=== PATIENT | male | born 1960 | race Caucasian/White ===

== ENCOUNTER 2018-08-29 16:50 | Emergency (ER) | payer MEDICAID ==
--- NOTE | 2018-08-29 17:08 | EDM.PDOC ---
ED HPI GENERAL MEDICAL PROBLEM - General Chief Complaint: Gastrointestinal Problem Stated Complaint: swollen throat Time Seen by Provider: 08/29/18 16:50 Source of Information: Reports: Patient History Limitations: Reports: No Limitations - History of Present Illness INITIAL COMMENTS - FREE TEXT/NARRATIVE: According to patient he claims that he has been having difficulty with swallowing since yesterday. Woke up yesterday morning with sore throat.He claims it hurts to swallow. HE does not have teeth in his posterior jaw line, but feels like tooth ache. Has noticed some hoarseness of voice. No wheezing or shortness of breath. No fever or chills. No difficulty breathing. He has artificial dentures but cannot place it on the jaw line due to pain. He has not eaten much since yesterday as it hurts to swallow. No trauma to the face on neck. Does not c/o neck pain either. Onset Date: 08/28/18 Duration: Day(s): (2 ) Location: Reports: Other (throat) Quality: Reports: Ache Severity: Moderate Improves with: Reports: None Worsens with: Reports: None Associated Symptoms: Denies: Confusion, Chest Pain, Cough, Diaphoresis, Fever/ Chills, Nausea/Vomiting, Rash, Seizure, Shortness of Breath, Syncope, Weakness right side of throat Pain Score (Numeric/FACES): 9 - Related Data Allergies Allergy/AdvReac Type Severity Reaction Status Date / Time acetaminophen [From Tylenol] Allergy Nausea Verified 08/29/18 17:14 Home Meds: Home Meds Aspirin [Thien Chewable] 81 mg PO DAILY 08/29/18 [History] Carvedilol [Coreg] 3.125 mg PO BID 08/29/18 [History] Omeprazole 20 mg PO ACBREAKFAST 08/29/18 [History] Torsemide [Demadex] 40 mg PO BID 08/29/18 [History] ED ROS GENERAL - Review of Systems Review Of Systems: See Below Constitutional: Denies: Fever, Chills HEENT: Reports: Throat Pain, Throat Swelling. Denies: Ear Pain, Eye Discharge, Rhinitis Respiratory: Denies: Shortness of Breath, Cough, Sputum Cardiovascular: Denies: Chest Pain, Edema, Lightheadedness GI/Abdominal: Denies: Abdominal Pain, Nausea, Vomiting : Denies: Dysuria, Frequency Musculoskeletal: Denies: Joint Pain, Joint Swelling Skin: Denies: Bruising, Pruritis, Rash Neurological: Denies: Confusion, Dizziness, Headache ED EXAM, GENERAL - Physical Exam Exam: See Below Exam Limited By: No Limitations General Appearance: Alert, WD/WN, No Apparent Distress Eye Exam: Bilateral Eye: EOMI, PERRL Ears: Normal External Exam, Normal Canal, Hearing Grossly Normal, Normal TMs Ear Exam: Bilateral Ear: Auricle Normal, Canal Normal, TM normal Nose: Normal Inspection, Normal Mucosa, No Blood Throat/Mouth: Inflammation (on palpaion of the floor of the mouth, there is tenderness over the right side, but no mass felt.), Other (there are no teethin the psoterior quadrant of the jaw. Also there is some swelling of the gums over the rigth lower quadrant. ) Head: Atraumatic, Normocephalic Neck: Full Range of Motion, Other (there is obvious fullness noted in the right submandibular region of the neck. On palaption there is a large 5cm by 3cm ovoid painful swelling at the angle of the mandible on the right side. Firm in consistency, very tender to palpation.) Course - Vital Signs Text/Narrative:: 58 year male presented with c/o sore throat started yesterday morning, which has got worse today.Also he c/o hoarseness of voice but no difficulty breathing. Pt's clinical exam does show obvious left submandibular region mass with tenderness of the soft tissue of the neck all the way into suprasternal area. There is no obvious anterior neck swelling. CBC showed white count of 17.6K with neutrophils of 80%.BMP appears normal. Patient c/o pain rating around 8/10. he did receive Rocephin 1gm IM and Toradol 60mg IM while waiting on the Ct results. CT soft tissue of the neck, shows Right submandibular sialadenitis with 2 large sialoliths.Also there is infiltration of the soft tissue in the submandibular region B/l and right parapharyngeal region, with deviation of pharynx to left. The infiltration extends into the anterior lower neck.My concern is the soft tissue infection of the anterior neck with cellulitis. I did contact Dr. Niño ENT surgeon on all at [facility] and discuss with him. HE did recommend to start board spectrum antibiotics and anaerobic coverage. Hence Zosyn 3.725mg IV and Flagyl 500mg IV was given. Started on Iv fluid, NS 500ml bolus followed by 125cc/hr. HE did receive 20mg dexamethasone IV. He did agree with transfer of patient to [facility]. I did contact hospitalist correction warden and discuss with him. He did agree to accept patient. Pt is stable for transfer. He will be transfer by [facility] ambulance. Further care per Dr. Niño and . Last Recorded V/S: Last Vital Signs Temp 99 F 08/29/18 19:26 Pulse 89 08/29/18 19:26 Resp 19 08/29/18 19:26 BP 122/65 08/29/18 19:26 Pulse Ox 97 08/29/18 19:26 - Orders/Labs/Meds Orders: Active Orders 24 hr Category Date Time Status Soft Tissue Neck wo Cont [CT] Stat Exams 08/29/18 17:01 Taken Piperacillin/Tazobactam [Zosyn] 3.375 gm Med 08/29/18 19:00 Active Sodium Chloride 0.9% [Normal Saline] 100 ml IV ONETIME Sodium Chloride 0.9% [Normal Saline] 500 ml Med 08/29/18 19:02 Active IV .BOLUS Sodium Chloride 0.9% [Saline Flush] Med 08/29/18 19:02 Active 10 ml FLUSH ASDIRECTED PRN metroNIDAZOLE/Normal Saline [Flagyl 500 MG in NS 100 ML Med 08/29/18 19:01 Active ] 500 mg Premix Bag 1 bag IV ONETIME Peripheral IV Insertion Adult [OM.PC] Routine Oth 08/29/18 19:02 Ordered Medication Orders Metronidazole 500 mg/ Premix 100 mls @ 100 mls/hr IV ONETIME ONE Stop: 08/29/18 20:00 Last Admin: 08/29/18 19:52 Dose: 100 mls/hr Piperacillin Sod/Tazobactam (Sod 3.375 gm/ Sodium Chloride) 100 mls @ 100 mls/ hr IV ONETIME ONE Stop: 08/29/18 19:59 Last Admin: 08/29/18 19:24 Dose: 100 mls/hr Sodium Chloride (Normal Saline) 500 mls @ 500 mls/hr IV .BOLUS ONE Stop: 08/29/18 20:01 Last Admin: 08/29/18 19:05 Dose: 500 mls/hr Sodium Chloride (Saline Flush) 10 ml FLUSH ASDIRECTED PRN PRN Reason: Keep Vein Open Labs: Laboratory Tests 08/29/18 08/29/18 Range/Units 17:05 17:05 WBC 17.6 H (4.0-11.0) K/uL RBC 5.58 (4.50-6.50) M/uL Hgb 17.4 (13.0-18.0) g/dL Hct 50.3 (40.0-54.0) % MCV 90 (76-96) fL MCH 31.2 (27.0-32.0) pg MCHC 34.6 (31.0-35.0) g/dL RDW 14.5 (11.0-16.0) % Plt Count 271 (150-400) K/uL MPV 10.2 H (6.0-10.0) fL Neut % (Auto) 80.5 H (45.0-70.0) % Lymph % (Auto) 8.3 L (20.0-40.0) % Jones % (Auto) 10.7 H (3.0-10.0) % Eos % (Auto) 0.3 L (1.0-5.0) % Baso % (Auto) 0.2 (0.0-0.5) % Neut # (Auto) 14.16 H (2.00-7.50) K/uL Lymph # (Auto) 1.46 L (1.50-4.00) K/uL Jones # (Auto) 1.88 H (0.20-0.80) K/uL Eos # (Auto) 0.06 (0.04-0.40) K/uL Baso # (Auto) 0.03 (0.02-0.10) K/uL Sodium 137 (136-145) mmol/L Potassium 4.1 (3.5-5.1) mmol/L Chloride 99 (98-107) mmol/L Carbon Dioxide 28.6 (21.0-32.0) mmol/L Anion Gap 13.5 (5.0-15.0) mmol/L BUN 13 (8-26) mg/dL Creatinine 1.27 (0.70-1.30) mg/dL Est Cr Clr Drug Dosing 57.83 mL/min Estimated GFR (MDRD) 58 L (>60) MLS/MIN BUN/Creatinine Ratio 10.2 (6-25) Glucose 118 H (74-100) mg/dL Calcium 8.7 (8.5-10.1) mg/dL Meds: Medications Generic Name Dose Route Start Last Admin Trade Name Yeny PRN Reason Stop Dose Admin Metronidazole 500 mg/ Premix 100 mls @ 100 mls/hr 08/29/18 19:01 08/29/18 19: 52 IV 08/29/18 20:00 100 mls/hr ONETIME ONE Administration Piperacillin Sod/Tazobactam 100 mls @ 100 mls/hr 08/29/18 19:00 08/29/18 19: 24 Sod 3.375 gm/ Sodium Chloride IV 08/29/18 19:59 100 mls/hr ONETIME ONE Administration Sodium Chloride 500 mls @ 500 mls/hr 08/29/18 19:02 08/29/18 19:05 Normal Saline IV 08/29/18 20:01 500 mls/hr .BOLUS ONE Administration Sodium Chloride 10 ml 08/29/18 19:02 Saline Flush FLUSH ASDIRECTED PRN Keep Vein Open Discontinued Medications Generic Name Dose Route Start Last Admin Trade Name Yeny PRN Reason Stop Dose Admin Ceftriaxone Sodium 1 gm 08/29/18 17:37 08/29/18 17:40 Rocephin IM 08/29/18 17:38 1 gm ONETIME ONE Administration Ceftriaxone Sodium Confirm 08/29/18 17:47 08/29/18 17:52 Rocephin Administered 08/29/18 17:48 Not Given Dose 1 gm .ROUTE .STK-MED ONE Dexamethasone 20 mg 08/29/18 19:01 08/29/18 19:20 Dexamethasone IVPUSH 08/29/18 19:02 20 mg ONETIME ONE Administration Dexamethasone Confirm 08/29/18 19:16 08/29/18 19:20 Dexamethasone Administered 08/29/18 19:17 Not Given Dose 20 mg .ROUTE .STK-MED ONE Ketorolac Tromethamine 60 mg 08/29/18 17:36 08/29/18 17:41 Toradol IM 08/29/18 17:37 60 mg ONETIME ONE Administration Ketorolac Tromethamine Confirm 08/29/18 17:47 08/29/18 17:52 Toradol Administered 08/29/18 17:48 Not Given Dose 60 mg .ROUTE .STK-MED ONE Departure - Departure Time of Disposition: 08:30 Disposition: DC/Tfer to Acute Hospital 02 Condition: Fair Clinical Impression: Sialoadenitis of submandibular gland, Cellulitis of neck - Discharge Information *PRESCRIPTION DRUG MONITORING PROGRAM REVIEWED*: Not Applicable *COPY OF PRESCRIPTION DRUG MONITORING REPORT IN PATIENT THANG: Not Applicable Referrals: PCP,None [Primary Care Provider] - Forms: ED Department Discharge - Problem List & Annotations (1) Cellulitis of neck SNOMED Code(s): 01728554 Code(s): L03.221 - CELLULITIS OF NECK Status: Acute Current Visit: Yes (2) Sialoadenitis of submandibular gland SNOMED Code(s): 337027289 Code(s): K11.20 - SIALOADENITIS, UNSPECIFIED Status: Acute Current Visit : Yes - Problem List Review Problem List Initiated/Reviewed/Updated: Yes - My Orders Last 24 Hours: My Active Orders 08/29/18 17:01 Soft Tissue Neck wo Cont [CT] Stat 08/29/18 19:00 Piperacillin/Tazobactam [Zosyn] 3.375 gm Sodium Chloride 0.9% [Normal Saline] 100 ml IV ONETIME 08/29/18 19:01 metroNIDAZOLE/Normal Saline [Flagyl 500 MG in NS 100 ML] 500 mg Premix Bag 1 bag IV ONETIME 08/29/18 19:02 Sodium Chloride 0.9% [Normal Saline] 500 ml IV .BOLUS Sodium Chloride 0.9% [Saline Flush] 10 ml FLUSH ASDIRECTED PRN Peripheral IV Insertion Adult [OM.PC] Routine - Assessment/Plan Last 24 Hours: My Active Orders 08/29/18 17:01 Soft Tissue Neck wo Cont [CT] Stat 08/29/18 19:00 Piperacillin/Tazobactam [Zosyn] 3.375 gm Sodium Chloride 0.9% [Normal Saline] 100 ml IV ONETIME 08/29/18 19:01 metroNIDAZOLE/Normal Saline [Flagyl 500 MG in NS 100 ML] 500 mg Premix Bag 1 bag IV ONETIME 08/29/18 19:02 Sodium Chloride 0.9% [Normal Saline] 500 ml IV .BOLUS Sodium Chloride 0.9% [Saline Flush] 10 ml FLUSH ASDIRECTED PRN Peripheral IV Insertion Adult [OM.PC] Routine Assessment:: Right submandibular sialoadenitis with neck cellulitis Plan: 58 year male presented with c/o sore throat started yesterday morning, which has got worse today.Also he c/o hoarseness of voice but no difficulty breathing. Pt's clinical exam does show obvious left submandibular region mass with tenderness of the soft tissue of the neck all the way into suprasternal area. There is no obvious anterior neck swelling. CBC showed white count of 17.6K with neutrophils of 80%.BMP appears normal. Patient c/o pain rating around 8/10. he did receive Rocephin 1gm IM and Toradol 60mg IM while waiting on the Ct results. CT soft tissue of the neck, shows Right submandibular sialadenitis with 2 large sialoliths.Also there is infiltration of the soft tissue in the submandibular region B/l and right parapharyngeal region, with deviation of pharynx to left. The infiltration extends into the anterior lower neck.My concern is the soft tissue infection of the anterior neck with cellulitis. I did contact Dr. Niño ENT surgeon on all at [facility] and discuss with him. HE did recommend to start board spectrum antibiotics and anaerobic coverage. Hence Zosyn 3.725mg IV and Flagyl 500mg IV was given. Started on Iv fluid, NS 500ml bolus followed by 125cc/hr. HE did receive 20mg dexamethasone IV. He did agree with transfer of patient to [facility]. I did contact hospitalist correction warden and discuss with him. He did agree to accept patient. Pt is stable for transfer. He will be transfer by [facility] ambulance. Further care per Dr. Niño and .
[2018-08-29] MEDS ORDERED: Ketorolac 60 MG/2 ML SDV IM ONE (17:36)
[2018-08-29] MEDS ORDERED: cefTRIAXone 1 GM Vial IM ONE (17:37)
[2018-08-29] MEDS ORDERED: Ketorolac 60 MG/2 ML SDV ONE (17:47)
[2018-08-29] MEDS ORDERED: cefTRIAXone 1 GM Vial ONE (17:47)
[2018-08-29] MEDS ORDERED: Piperacillin/Tazobactam 3.375 GM in Sodium Chloride 0.9% 100 ML IV ONE (19:00)
[2018-08-29] MEDS ORDERED: metroNIDAZOLE/Normal Saline 500 MG in Premix Bag 1 BAG IV ONE (19:01)
[2018-08-29] MEDS ORDERED: Dexamethasone 10 MG/ML SDV IVPUSH ONE (19:01)
[2018-08-29] MEDS ORDERED: Sodium Chloride 0.9% 10 ML Syringe FLUSH PRN (19:02)
[2018-08-29] MEDS ORDERED: Sodium Chloride 0.9% 500 ML IV ONE (19:02)
[2018-08-29] MEDS ORDERED: Dexamethasone 4 MG/ML SDV ONE (19:16)
--- NOTE | 2018-08-30 09:39 | CT ---
UNENHANCED NECK CT DATE OF SERVICE: 08/29/18 The parotid glands are symmetric and appear normal. The submandibular glands are asymmetric. The right submandibular gland appears enlarged compared to the left. There is minimal adjacent fat stranding. There are two enlarged sialoliths located within the distal right submandibular duct. They measures 7 and 13 mm in length. The thyroid gland is unremarkable. The vascular structures appear unremarkable. No adenopathy. There is mild mass effect produced by the right submandibular gland on adjacent structures as well as the pharynx. Larynx appears unremarkable. The epiglottis is not enlarged. No other significant findings. [id number] [facility]
== END 2018-08-29 20:29 ==
LOC: LB.ED 16:50
DX: K11.20 Sialoadenitis, unspecified (principal); L03.221 Cellulitis of neck; Z79.82 Long term (current) use of aspirin; Z79.899 Other long term (current) drug therapy; Z88.8 Allergy status to other drugs, medicaments and biological substances
CPT/HCPCS: 36415; 70490; 80048; 85025; 96372; 96374; 96375; 99285-25; A0425; A0429; J0696; J1100; J1885; J2543; J3490; J7030; J7040

== ENCOUNTER 2018-11-14 11:36 | Emergency (ER) | payer MEDICAID ==
[2018-11-14] MEDS ORDERED: Furosemide 40 MG/4 ML VIAL IVPUSH ONE (12:51)
[2018-11-14] MEDS ORDERED: Sodium Chloride 0.9% 10 ML Syringe FLUSH PRN (12:51)
--- NOTE | 2018-11-14 12:57 | CR ---
DATE OF SERVICE: 11/14/2018 CLINICAL DATA: Shortness of breath PA and lateral chest: No priors. The heart is mildly enlarged. The pulmonary vasculature is prominent with cephalization of flow consistent with pulmonary venous congestion. Mild congestive failure is suspected. There is mild interstitial changes throughout both lungs. There is blunting of both costrophrenic angles posteriorly on the lateral view consistent with small bilateral pleural effusions. No other significant findings. No pneumothorax. MTDD
[2018-11-14] MEDS ORDERED: Furosemide 40 MG/4 ML VIAL ONE (13:20)
--- NOTE | 2018-11-14 15:00 | EDM.PDOC ---
ED HPI GENERAL MEDICAL PROBLEM - General Chief Complaint: Cardiovascular Problem Stated Complaint: TROUBLE BREATHING Time Seen by Provider: 11/14/18 11:50 Source of Information: Reports: Patient History Limitations: Reports: No Limitations - History of Present Illness INITIAL COMMENTS - FREE TEXT/NARRATIVE: This is a 58yo M here for shortness of breath for the past month. He states he has slowly gotten worse. It is noted that he has heart issues in the past with low EF and COPD. He has not been compliant with his torsemide and has taken his meds on and off. He denies any other issues other than shortness of breath. He has some feeling of abdominal pressure but no pain. Onset: Gradual Duration: Week(s):, Getting Worse Location: Reports: Chest, Abdomen Associated Symptoms: Reports: Shortness of Breath - Related Data Allergies Allergy/AdvReac Type Severity Reaction Status Date / Time acetaminophen [From Tylenol] Allergy Nausea Verified 11/14/18 12:00 Home Meds: Home Meds Aspirin [Thien Chewable] 81 mg PO DAILY 08/29/18 [History] Carvedilol [Coreg] 3.125 mg PO BID 08/29/18 [History] Omeprazole 20 mg PO ACBREAKFAST 08/29/18 [History] Torsemide [Demadex] 40 mg PO BID 08/29/18 [History] Social & Family History - Tobacco Use Smoking Status *Q: Current Every Day Smoker Years of Tobacco use: 45 Packs/Tins Daily: 0.5 - Caffeine Use Caffeine Use: Reports: Coffee, Soda - Recreational Drug Use Recreational Drug Use: Yes Recreational Drug Type: Reports: Marijuana/Hashish Recreational Drug Use Frequency: Rarely ED ROS GENERAL - Review of Systems Review Of Systems: ROS reveals no pertinent complaints other than HPI. ED EXAM, GENERAL - Physical Exam Exam: See Below Exam Limited By: No Limitations General Appearance: Alert, WD/WN, Mild Distress Eye Exam: Bilateral Eye: EOMI, PERRL Ears: Normal External Exam Nose: Normal Inspection Throat/Mouth: Normal Inspection Head: Atraumatic, Normocephalic Neck: Normal Inspection, Supple, Non-Tender Respiratory/Chest: Crackles, Wheezing Cardiovascular: Normal Peripheral Pulses, Tachycardia GI/Abdominal: Normal Bowel Sounds Course - Vital Signs Last Recorded V/S: Last Vital Signs Temp 36.6 C 11/14/18 11:54 Pulse 96 11/14/18 11:54 Resp 20 11/14/18 11:54 BP 139/93 H 11/14/18 11:54 Pulse Ox 98 11/14/18 11:54 - Orders/Labs/Meds Orders: Active Orders 24 hr Category Date Time Status EKG Documentation Completion [RC] ASDIRECTED Care 11/14/18 12:02 Active Peripheral IV Care [RC] . DIRECTED Care 11/14/18 12:51 Active Sodium Chloride 0.9% [Saline Flush] Med 11/14/18 12:51 Active 10 ml FLUSH ASDIRECTED PRN Peripheral IV Insertion Adult [OM.PC] Routine Oth 11/14/18 12:51 Ordered Medication Orders Sodium Chloride (Saline Flush) 10 ml FLUSH ASDIRECTED PRN PRN Reason: Keep Vein Open Labs: Laboratory Tests 11/14/18 11/14/18 11/14/18 Range/Units 12:10 12:10 12:10 WBC 8.6 D (4.0-11.0) K/uL RBC 4.58 (4.50-6.50) M/uL Hgb 13.9 D (13.0-18.0) g/dL Hct 42.0 (40.0-54.0) % MCV 92 (76-96) fL MCH 30.3 (27.0-32.0) pg MCHC 33.1 (31.0-35.0) g/dL RDW 14.3 (11.0-16.0) % Plt Count 285 (150-400) K/uL MPV 10.5 H (6.0-10.0) fL Neut % (Auto) 73.3 H (45.0-70.0) % Lymph % (Auto) 16.4 L (20.0-40.0) % Bryan % (Auto) 6.2 (3.0-10.0) % Eos % (Auto) 3.6 (1.0-5.0) % Baso % (Auto) 0.5 (0.0-0.5) % Neut # (Auto) 6.28 (2.00-7.50) K/uL Lymph # (Auto) 1.40 L (1.50-4.00) K/uL Bryan # (Auto) 0.53 (0.20-0.80) K/uL Eos # (Auto) 0.31 (0.04-0.40) K/uL Baso # (Auto) 0.04 (0.02-0.10) K/uL VBG pH 7.37 (7.31-7.41) Sodium 143 (136-145) mmol/L Potassium 4.5 (3.5-5.1) mmol/L Chloride 108 H (98-107) mmol/L Carbon Dioxide 24.1 (21.0-32.0) mmol/L Anion Gap 15.4 H (5.0-15.0) mmol/L BUN 13 (8-26) mg/dL Creatinine 1.20 (0.70-1.30) mg/dL Est Cr Clr Drug Dosing TNP Estimated GFR (MDRD) > 60 (>60) MLS/MIN BUN/Creatinine Ratio 10.8 (6-25) Glucose 154 H D (74-100) mg/dL Calcium 8.5 (8.5-10.1) mg/dL Troponin I 0.045 (0.000-0.060) ng/mL B-Natriuretic Peptide (0-125) pg/mL 11/14/18 Range/Units 12:10 WBC (4.0-11.0) K/uL RBC (4.50-6.50) M/uL Hgb (13.0-18.0) g/dL Hct (40.0-54.0) % MCV (76-96) fL MCH (27.0-32.0) pg MCHC (31.0-35.0) g/dL RDW (11.0-16.0) % Plt Count (150-400) K/uL MPV (6.0-10.0) fL Neut % (Auto) (45.0-70.0) % Lymph % (Auto) (20.0-40.0) % Bryan % (Auto) (3.0-10.0) % Eos % (Auto) (1.0-5.0) % Baso % (Auto) (0.0-0.5) % Neut # (Auto) (2.00-7.50) K/uL Lymph # (Auto) (1.50-4.00) K/uL Bryan # (Auto) (0.20-0.80) K/uL Eos # (Auto) (0.04-0.40) K/uL Baso # (Auto) (0.02-0.10) K/uL VBG pH (7.31-7.41) Sodium (136-145) mmol/L Potassium (3.5-5.1) mmol/L Chloride (98-107) mmol/L Carbon Dioxide (21.0-32.0) mmol/L Anion Gap (5.0-15.0) mmol/L BUN (8-26) mg/dL Creatinine (0.70-1.30) mg/dL Est Cr Clr Drug Dosing Estimated GFR (MDRD) (>60) MLS/MIN BUN/Creatinine Ratio (6-25) Glucose (74-100) mg/dL Calcium (8.5-10.1) mg/dL Troponin I (0.000-0.060) ng/mL B-Natriuretic Peptide 2906 H (0-125) pg/mL Meds: Medications Generic Name Dose Route Start Last Admin Trade Name Freq PRN Reason Stop Dose Admin Sodium Chloride 10 ml 11/14/18 12:51 Saline Flush FLUSH ASDIRECTED PRN Keep Vein Open Discontinued Medications Generic Name Dose Route Start Last Admin Trade Name Freq PRN Reason Stop Dose Admin Furosemide 40 mg 11/14/18 12:51 11/14/18 13:18 Lasix IVPUSH 11/14/18 12:52 40 mg NOW ONE Administration Furosemide Confirm 11/14/18 13:20 11/14/18 13:23 Lasix Administered 11/14/18 13:21 Not Given Dose 40 mg .ROUTE .STK-MED ONE Departure - Departure Time of Disposition: 14:30 Disposition: Home, Self-Care 01 Condition: Good Clinical Impression: Pulmonary vascular congestion COPD (chronic obstructive pulmonary disease) Qualifiers: COPD type: unspecified COPD Qualified Code(s): J44.9 - Chronic obstructive pulmonary disease, unspecified CHF (congestive heart failure) Qualifiers: Heart failure type: unspecified Heart failure chronicity: chronic Qualified Code(s): I50.9 - Heart failure, unspecified Instructions: Shortness of Breath, Adult, [id number] Referrals: PCP,None [Primary Care Provider] - Forms: ED Department Discharge Additional Instructions: Discharge home. Diet: as tolerated Activity: as tolerated. Continue taking home medications. Continue taking Torsemide as prescribed. Patient educated on taking the Torsemide earlier in the day to prevent having to void all night long. Follow up in the clinic with primary provider and your laboratory tester. - Problem List & Annotations (1) CHF (congestive heart failure) SNOMED Code(s): 14995687 Code(s): I50.9 - HEART FAILURE, UNSPECIFIED Status: Chronic Priority: Medium Current Visit: Yes Qualifiers: Heart failure type: unspecified Heart failure chronicity: chronic Qualified Code(s): I50.9 - Heart failure, unspecified (2) COPD (chronic obstructive pulmonary disease) SNOMED Code(s): 23366030 Code(s): J44.9 - CHRONIC OBSTRUCTIVE PULMONARY DISEASE, UNSPECIFIED Status : Chronic Priority: Medium Current Visit: Yes Qualifiers: COPD type: unspecified COPD Qualified Code(s): J44.9 - Chronic obstructive pulmonary disease, unspecified (3) Pulmonary vascular congestion SNOMED Code(s): 980628165 Code(s): R09.89 - OTH SYMPTOMS AND SIGNS INVOLVING THE CIRC AND RESP SYSTEMS Status: Acute Priority: High Current Visit: Yes - Problem List Review Problem List Initiated/Reviewed/Updated: Yes - My Orders Last 24 Hours: My Active Orders 11/14/18 12:02 EKG Documentation Completion [RC] ASDIRECTED 11/14/18 12:51 Peripheral IV Care [RC] . DIRECTED Sodium Chloride 0.9% [Saline Flush] 10 ml FLUSH ASDIRECTED PRN Peripheral IV Insertion Adult [OM.PC] Routine - Assessment/Plan Last 24 Hours: My Active Orders 11/14/18 12:02 EKG Documentation Completion [RC] ASDIRECTED 11/14/18 12:51 Peripheral IV Care [RC] . DIRECTED Sodium Chloride 0.9% [Saline Flush] 10 ml FLUSH ASDIRECTED PRN Peripheral IV Insertion Adult [OM.PC] Routine Plan: Counseled on compliance with medications. Patient states he stopped taking his torsemide due to frequent urinations. Counseled on f/u with Cardiology and rtc and f/u with PCP this week.
== END 2018-11-14 14:11 | disposition home or self-care (01) ==
LOC: LB.ED 11:36
DX: J44.9 Chronic obstructive pulmonary disease, unspecified (principal); I50.9 Heart failure, unspecified; F17.210 Nicotine dependence, cigarettes, uncomplicated; Z79.899 Other long term (current) drug therapy; Z79.82 Long term (current) use of aspirin; Z88.8 Allergy status to other drugs, medicaments and biological substances
CPT/HCPCS: 36415; 71046; 80048; 82800; 83880; 84484; 85025; 93005; 96374; 99285-25; J1940

== ENCOUNTER 2019-02-22 21:05 | Emergency (ER) | payer MEDICAID ==
[2019-02-22] MEDS ORDERED: Amoxicillin/Clavulanate K 875-125 MG Tab ONE (22:40)
--- NOTE | 2019-02-23 01:02 | ER ---
REASON FOR EMERGENCY ROOM VISIT: Neck swelling. HISTORY: This 59-year-old man comes in with a 2-day history of swelling along his anterior neck beneath his mandible on the right side. His past medical history is immediately relevant and that he was seen back in August with similar tender swollen area with some surrounding cellulitis that was thought to be due to sialadenitis. A CT scan showed sialadenitis with some small salivary gland stones involving his right submandibular gland. He was hospitalized in [place] and placed on IV antibiotics for 3 days and was seen in consultation by ENT. Apparently according to the patient, there was some discussion as to whether or not his submandibular gland should be excised at that juncture, but no definite decision was made. He was discharged on oral antibiotics and from that point on was asymptomatic. He has not had any fever or chills. He states that the area in his neck is more tender. He does have a foul taste in his mouth which he thinks is pus. He notice this as some greenish thick saliva also consistent with pus. He denies any difficulty swallowing or any difficulties with his airway. PAST MEDICAL HISTORY: Significant for: 1. COPD. 2. CHF. 3. Hypertension. 4. History of pulmonary vascular congestion. MEDICATIONS: Include fluticasone, Advair inhaler p.r.n., citalopram 20 mg p.o. daily, lisinopril 15 mg p.o. daily, albuterol inhaler p.r.n., aspirin 81 mg p.o. daily , omeprazole 20 mg p.o. daily, carvedilol 3.125 mg p.o. b.i.d., torsemide 20 mg p.o. daily and 40 mg p.o. daily. ALLERGIES: ACETAMINOPHEN. REVIEW OF SYSTEMS: Pertinent positives and negatives as listed in the HPI. PHYSICAL EXAMINATION: GENERAL: Reveals a pleasant man in no acute distress. VITAL SIGNS: He is afebrile. Pulse is 105, blood pressure 103/79, respiratory rate is 24, O2 sats 98%. HEENT: Head is normocephalic. No conjunctivitis is noted. On the right side of his submandibular area just inferior to the angle of the mandible, he has a smooth indurated, firm, freely movable, tender mass consistent with a sialadenitis. There is no crepitus. There is no overlying erythema. On palpation of this, I was able to get some purulent material expressed from his salivary duct orifices on the right side of the floor of his mouth. It is tender, but not exquisitely so. I cannot detect any fluctuance in this area. Left side of his neck is normal. Remainder of his oropharynx is unremarkable except he is edentulous on all of his maxillary teeth. CHEST: Clear to auscultation with reasonably good air exchange. No wheezes, rhonchi, or rales. CARDIAC: Regular rate without murmur. ABDOMEN: Soft, nontender. No hepatosplenomegaly. SKIN: No rashes. LABORATORY: CBC is normal. IMPRESSION: Sialadenitis, recurrent. PLAN: I discussed the patient's findings and his past history with Dr. Lindsay, the ENT physician hvac commercial salesperson in [place]. He felt that was reasonable, given the fact that he does not have an elevated white count (WBC is 10.4), and he is afebrile to place him on oral antibiotics and Augmentin being one option discussed. We discussed some other measures including massage of the salivary gland, lemon drops, and adequate hydration. He was given Augmentin 875 mg tablets, dispense #20, 1 p.o. b.i.d. He is instructed to follow up with his provider next week, where she may want to consult with ENT depending on how he is doing. Certainly, if his symptoms worsen or should he develop fever and chills, he should be seen again whereupon he may need to be hospitalized on IV antibiotics. Dr. Lindsay felt that most of these cases that present in this manner can be treated on oral antibiotics and I felt comfortable with his recommendation. All questions were answered. The patient understands and agrees with this plan. MALENA /[id number] RUFINA
== END 2019-02-22 22:48 | disposition home or self-care (01) ==
LOC: LB.ED 21:05
DX: K11.20 Sialoadenitis, unspecified (principal); I11.0 Hypertensive heart disease with heart failure; I50.9 Heart failure, unspecified; J44.9 Chronic obstructive pulmonary disease, unspecified; Z88.6 Allergy status to analgesic agent; Z79.82 Long term (current) use of aspirin; Z79.899 Other long term (current) drug therapy
CPT/HCPCS: 36415; 80053; 85025; 99283; A9270

== ENCOUNTER 2019-03-30 06:26 | Emergency (ER) | payer MEDICAID ==
--- NOTE | 2019-03-30 06:56 | EDM.PDOC ---
ED HPI GENERAL MEDICAL PROBLEM - General Chief Complaint: General Stated Complaint: THROAT SWELLING Time Seen by Provider: 03/30/19 06:30 Source of Information: Reports: Patient History Limitations: Reports: No Limitations - History of Present Illness INITIAL COMMENTS - FREE TEXT/NARRATIVE: Pt is here as he has noticed the reoccurrence of swelling over the right lower jaw since yesterday. He has some pain in the swelling. No purulent drainage under the tongue.No fever or chills. His looked in his mouth and noticed his tongue was black and brought him into emergency room.No hoarseness of voice , no shortness of breath. No difficulty swallowing or breathing. Pt has chronic sialoliths of his right submandibular gland. He has had several episodes of infection in the gland. He has had 3 courses of antibiotics in the recent past. Antibiotics resolve the infection and it reoccurs. No other complaints Onset Date: 03/29/19 Location: Reports: Neck Quality: Reports: Ache Severity: Mild Improves with: Reports: None Worsens with: Reports: None Associated Symptoms: Denies: Confusion, Chest Pain, Cough, Diaphoresis, Fever/ Chills, Headaches, Nausea/Vomiting, Rash, Seizure, Shortness of Breath, Syncope , Weakness Right Throat Pain Score (Numeric/FACES): 7 - Related Data Allergies Allergy/AdvReac Type Severity Reaction Status Date / Time acetaminophen [From Tylenol] Allergy Nausea Verified 02/22/19 22:04 Home Meds: Home Meds Carvedilol [Coreg] 3.125 mg PO BID 08/29/18 [History] Omeprazole 20 mg PO ACBREAKFAST 08/29/18 [History] Torsemide [Demadex] 40 mg PO DAILY 08/29/18 [History] Albuterol [Ventolin HFA] 1 - 2 inh PO Q6H PRN 02/22/19 [History] Aspirin [Ecotrin EC] 81 mg PO DAILY 02/22/19 [History] Citalopram [Citalopram HBr] 20 mg PO DAILY 02/22/19 [History] Fluticasone/Salmeterol [Advair Hfa 230-21 Mcg Inhaler] 1 puff IH Q4HR PRN [History] Lisinopril 5 mg PO DAILY 02/22/19 [History] Lisinopril 10 mg PO DAILY 02/22/19 [History] Torsemide [Demadex] 20 mg PO DAILY 02/22/19 [History] Social & Family History - Caffeine Use Caffeine Use: Reports: Coffee, Soda ED ROS GENERAL - Review of Systems Review Of Systems: See Below Constitutional: Denies: Fever, Chills, Weakness HEENT: Denies: Ear Pain, Rhinitis, Sinus Problem, Throat Pain Respiratory: Denies: Shortness of Breath, Wheezing, Pleuritic Chest Pain, Cough , Sputum Cardiovascular: Denies: Chest Pain, Lightheadedness GI/Abdominal: Denies: Abdominal Pain, Nausea, Vomiting Musculoskeletal: Denies: Joint Pain, Joint Swelling Skin: Denies: Bruising, Pruritis, Rash, Wound ED EXAM, GENERAL - Physical Exam Exam: See Below Exam Limited By: No Limitations General Appearance: Alert, WD/WN, No Apparent Distress Eye Exam: Bilateral Eye: EOMI, PERRL Ears: Normal External Exam, Normal Canal, Hearing Grossly Normal, Normal TMs Ear Exam: Bilateral Ear: Auricle Normal, Canal Normal, TM normal Nose: Normal Inspection, Normal Mucosa, No Blood Throat/Mouth: Normal Inspection, Normal Lips, Normal Teeth, Normal Gums, Normal Oropharynx, Normal Voice, No Airway Compromise Head: Atraumatic, Normocephalic Neck: Full Range of Motion, Other (There is swelling on the right submandibular region about 3cm by 4cm in dimension, mild tenderness to palpation. No warmth or erythema noted. There is no purulent draiange under the tongue.) Respiratory/Chest: No Respiratory Distress, Lungs Clear, Normal Breath Sounds, No Accessory Muscle Use, Chest Non-Tender Cardiovascular: Normal Peripheral Pulses, Regular Rate, Rhythm, No Edema, No Gallop, No JVD, No Murmur, No Rub Course - Vital Signs Text/Narrative:: Pt has history of right submandibular salivary gland sialolithiasis with recurrent sialoadenitis. Pt's CBC done today shows white count of 12.5. he is not having purulent drainage that he routinely has either. I have reassured patient, started him on Augmentin 875mg BID for 10 days. Advised him to followup with ENT. Patient does have appointment on 03/03/19 with ENT at [facility]. Pt advised to followup with ENT for further care. I do not see any concern of airway compromise on this visit. Advised to return to emergency room, if he has hoarseness of voice or loss of voice, drooling of saliva, difficulty with swallowing. High grade fever with chills. Last Recorded V/S: Last Vital Signs Temp 96.7 F 03/30/19 06:49 Pulse 104 H 03/30/19 06:49 Resp 20 03/30/19 06:49 BP 127/103 H 03/30/19 06:49 Pulse Ox 100 03/30/19 06:49 - Orders/Labs/Meds Labs: Laboratory Tests 03/30/19 Range/Units 07:02 WBC 12.5 H D (4.0-11.0) K/uL RBC 5.42 (4.50-6.50) M/uL Hgb 15.8 (13.0-18.0) g/dL Hct 45.4 (40.0-54.0) % MCV 84 (76-96) fL MCH 29.2 (27.0-32.0) pg MCHC 34.8 (31.0-35.0) g/dL RDW 14.6 (11.0-16.0) % Plt Count 241 (150-400) K/uL MPV 10.8 H (6.0-10.0) fL Neut % (Auto) 80.5 H (45.0-70.0) % Lymph % (Auto) 9.7 L (20.0-40.0) % [place] % (Auto) 7.9 (3.0-10.0) % Eos % (Auto) 1.4 (1.0-5.0) % Baso % (Auto) 0.5 (0.0-0.5) % Neut # (Auto) 10.02 H (2.00-7.50) K/uL Lymph # (Auto) 1.21 L (1.50-4.00) K/uL [place] # (Auto) 0.99 H (0.20-0.80) K/uL Eos # (Auto) 0.18 (0.04-0.40) K/uL Baso # (Auto) 0.06 (0.02-0.10) K/uL Departure - Departure Time of Disposition: 07:20 Disposition: Home, Self-Care 01 Condition: Fair Clinical Impression: Sialolithiasis of submandibular gland - Discharge Information *PRESCRIPTION DRUG MONITORING PROGRAM REVIEWED*: Not Applicable *COPY OF PRESCRIPTION DRUG MONITORING REPORT IN PATIENT THANG: Not Applicable Forms: ED Department Discharge Additional Instructions: Pt has history of right submandibular salivary gland sialolithiasis with recurrent sialoadenitis. Pt's CBC done today shows white count of 12.5. he is not having purulent drainage that he routinely has either. I have reassured patient, started him on Augmentin 875mg BID for 10 days. Advised him to followup with ENT. Patient does have appointment on 03/03/19 with ENT at [facility]. Pt advised to followup with ENT for further care. I do not see any concern of airway compromise on this visit. Advised to return to emergency room, if he has hoarseness of voice or loss of voice, drooling of saliva, difficulty with swallowing. High grade fever with chills. - Problem List & Annotations (1) Sialolithiasis of submandibular gland Status: Acute Current Visit: Yes - Problem List Review Problem List Initiated/Reviewed/Updated: Yes - Assessment/Plan Assessment:: Sialolithiasis Submandibular gland Plan: Pt has history of right submandibular salivary gland sialolithiasis with recurrent sialoadenitis. Pt's CBC done today shows white count of 12.5. he is not having purulent drainage that he routinely has either. I have reassured patient, started him on Augmentin 875mg BID for 10 days. Advised him to followup with ENT. Patient does have appointment on 03/03/19 with ENT at [facility]. Pt advised to followup with ENT for further care. I do not see any concern of airway compromise on this visit. Advised to return to emergency room, if he has hoarseness of voice or loss of voice, drooling of saliva, difficulty with swallowing. High grade fever with chills.
[2019-03-30] MEDS ORDERED: Amoxicillin/Clavulanate K 875-125 MG Tab ONE (07:20)
== END 2019-03-30 07:30 | disposition home or self-care (01) ==
LOC: LB.ED 06:26
DX: K11.5 Sialolithiasis (principal); Z88.8 Allergy status to other drugs, medicaments and biological substances
CPT/HCPCS: 36415; 85025; 99283; A9270-GY

== ENCOUNTER 2019-04-23 16:10 | Inpatient (IN) | payer MEDICAID ==
[2019-04-23 16:46] LABS: HEMOGLOBIN A1C 11.5 % (4.5-6.2)
[2019-04-23] MEDS ORDERED: 50% Dextrose in Water 50 ML Syringe IVPUSH ONE (17:25)
[2019-04-23] MEDS ORDERED: Sodium Chloride 0.45% with KCl 1,000 ML IV SCH (17:45)
--- NOTE | 2019-04-23 17:51 | PCM.HP.2 ---
H&P History of Present Illness - General Date of Service: 04/23/19 Admit Problem/Dx: Admission Diagnosis/Problem Admission Diagnosis/Problem Diabetic ketoacidosis Source of Information: Patient, Family History Limitations: Reports: No Limitations - History of Present Illness Initial Comments - Free Text/Narative: This is a 59yo M here for fatigue. He has been sleeping for days. His symptoms started on Monday and has been constant. He has been drinking a lot of water and urinating a lot. He denies having an appetite. He states he just feels tired and wants to sleep all the time. He denies any fever or chills, no chest pain or shortness of breath. He does have a parent with Diabetes. Onset of Symptoms: Reports: Sudden Duration of Symptoms: Reports: Day(s): Location: Reports: Generalized Severity: Severe Improves with: Reports: None Worsens with: Reports: None Associated Symptoms: Reports: Loss of Appetite, Weakness, Other (weight loss of 15-20 lbs) - Related Data Allergies/Adverse Reactions: Allergies Allergy/AdvReac Type Severity Reaction Status Date / Time acetaminophen [From Tylenol] Allergy Nausea Verified 02/22/19 22:04 Home Medications: Home Meds Carvedilol [Coreg] 3.125 mg PO BID 08/29/18 [History] Omeprazole 20 mg PO ACBREAKFAST 08/29/18 [History] Torsemide [Demadex] 40 mg PO DAILY 08/29/18 [History] Albuterol [Ventolin HFA] 1 - 2 inh PO Q6H PRN 02/22/19 [History] Aspirin [Ecotrin EC] 81 mg PO DAILY 02/22/19 [History] Citalopram [Citalopram HBr] 20 mg PO DAILY 02/22/19 [History] Fluticasone/Salmeterol [Advair Hfa 230-21 Mcg Inhaler] 1 puff IH Q4HR PRN [History] Lisinopril 5 mg PO DAILY 02/22/19 [History] Lisinopril 10 mg PO DAILY 02/22/19 [History] Torsemide [Demadex] 20 mg PO DAILY 02/22/19 [History] Past Medical History Cardiovascular History: Reports: Heart Failure, Hypertension Respiratory History: Reports: COPD Gastrointestinal History: Reports: GERD Social & Family History - Family History Family Medical History: Noncontributory - Caffeine Use Caffeine Use: Reports: Coffee, Soda H&P Review of Systems - Review of Systems: Review Of Systems: ROS reveals no pertinent complaints other than HPI. Exam - Exam Exam: See Below - Exam General: Alert, Lethargic HEENT: PERRLA, EOMI Neck: Supple, Trachea Midline Lungs: Clear to Auscultation, Normal Respiratory Effort Cardiovascular: Regular Rate, Regular Rhythm GI/Abdominal Exam: Normal Bowel Sounds, Soft, Non-Tender Back Exam: Normal Inspection Extremities: Normal Inspection, No Pedal Edema Peripheral Pulses: 2+: Dorsalis Pedis (L), Dorsalis Pedis (R) Skin: Warm, Dry, Intact Neurological: Cranial Nerves Intact, Reflexes Equal Bilateral Neuro Extensive - Mental Status: Oriented x3, Other (sleepy, tired) - Patient Data Lab Results Last 24 hrs: Laboratory Results - last 24 hr 04/23/19 04/23/19 04/23/19 Range/Units 16:17 16:17 16:17 WBC 9.4 D (4.0-11.0) K/uL RBC 5.50 (4.50-6.50) M/uL Hgb 16.0 (13.0-18.0) g/dL Hct 47.1 (40.0-54.0) % MCV 86 (76-96) fL MCH 29.1 (27.0-32.0) pg MCHC 34.0 (31.0-35.0) g/dL RDW 15.6 (11.0-16.0) % Plt Count 198 (150-400) K/uL MPV 11.5 H (6.0-10.0) fL Neut % (Auto) 78.3 H (45.0-70.0) % Lymph % (Auto) 12.6 L (20.0-40.0) % [place] % (Auto) 7.0 (3.0-10.0) % Eos % (Auto) 1.5 (1.0-5.0) % Baso % (Auto) 0.6 H (0.0-0.5) % Neut # (Auto) 7.35 (2.00-7.50) K/uL Lymph # (Auto) 1.18 L (1.50-4.00) K/uL [place] # (Auto) 0.66 (0.20-0.80) K/uL Eos # (Auto) 0.14 (0.04-0.40) K/uL Baso # (Auto) 0.06 (0.02-0.10) K/uL ESR 18 (0-20) mm/hr VBG pH (7.31-7.41) Sodium 139 (136-145) mmol/L Potassium 4.7 (3.5-5.1) mmol/L Chloride 100 (98-107) mmol/L Carbon Dioxide 29.5 (21.0-32.0) mmol/L Anion Gap 14.2 (5.0-15.0) mmol/L BUN 23 D (8-26) mg/dL Creatinine 1.75 H D (0.70-1.30) mg/dL Est Cr Clr Drug Dosing TNP Estimated GFR (MDRD) 40 L (>60) MLS/MIN BUN/Creatinine Ratio 13.1 (6-25) Glucose 624 H* D (74-100) mg/dL Hemoglobin A1c 11.5 H (4.5-6.2) % Calcium 10.0 (8.5-10.1) mg/dL Total Bilirubin 1.1 H D (0.0-1.0) mg/dL AST 21 (15-37) U/L ALT 37 (12-78) U/L Alkaline Phosphatase 163 H (46-116) U/L C-React Prot High Sens 27.63 H (0.00-3.00) mg/dL B-Natriuretic Peptide 3640 H D (0-125) pg/mL Total Protein 7.5 (6.4-8.2) g/dL Albumin 3.4 (3.4-5.0) g/dL Globulin 4.1 (2.2-4.2) g/dL Albumin/Globulin Ratio 0.8 (0.8-2.0) TSH, Ultra Sensitive 1.996 (0.358-3.740) uIU/mL Monoscreen (NEGATIVE) 04/23/19 04/23/19 Range/Units 16:17 17:19 WBC (4.0-11.0) K/uL RBC (4.50-6.50) M/uL Hgb (13.0-18.0) g/dL Hct (40.0-54.0) % MCV (76-96) fL MCH (27.0-32.0) pg MCHC (31.0-35.0) g/dL RDW (11.0-16.0) % Plt Count (150-400) K/uL MPV (6.0-10.0) fL Neut % (Auto) (45.0-70.0) % Lymph % (Auto) (20.0-40.0) % [place] % (Auto) (3.0-10.0) % Eos % (Auto) (1.0-5.0) % Baso % (Auto) (0.0-0.5) % Neut # (Auto) (2.00-7.50) K/uL Lymph # (Auto) (1.50-4.00) K/uL [place] # (Auto) (0.20-0.80) K/uL Eos # (Auto) (0.04-0.40) K/uL Baso # (Auto) (0.02-0.10) K/uL ESR (0-20) mm/hr VBG pH 7.41 (7.31-7.41) Sodium (136-145) mmol/L Potassium (3.5-5.1) mmol/L Chloride (98-107) mmol/L Carbon Dioxide (21.0-32.0) mmol/L Anion Gap (5.0-15.0) mmol/L BUN (8-26) mg/dL Creatinine (0.70-1.30) mg/dL Est Cr Clr Drug Dosing Estimated GFR (MDRD) (>60) MLS/MIN BUN/Creatinine Ratio (6-25) Glucose (74-100) mg/dL Hemoglobin A1c (4.5-6.2) % Calcium (8.5-10.1) mg/dL Total Bilirubin (0.0-1.0) mg/dL AST (15-37) U/L ALT (12-78) U/L Alkaline Phosphatase (46-116) U/L C-React Prot High Sens (0.00-3.00) mg/dL B-Natriuretic Peptide (0-125) pg/mL Total Protein (6.4-8.2) g/dL Albumin (3.4-5.0) g/dL Globulin (2.2-4.2) g/dL Albumin/Globulin Ratio (0.8-2.0) TSH, Ultra Sensitive (0.358-3.740) uIU/mL Monoscreen Negative (NEGATIVE) Result Diagrams: 04/23/19 16:17 04/23/19 16:17 - Problem List (1) Diabetic ketoacidosis SNOMED Code(s): 279315049, 272548099 ICD Code: E11.10 - TYPE 2 DIABETES MELLITUS WITH KETOACIDOSIS WITHOUT COMA Status: Acute Priority: High Current Visit: Yes Qualifiers: Diabetes mellitus type: type 2 Diabetes mellitus complication detail: without coma Qualified Code(s): E11.10 - Type 2 diabetes mellitus with ketoacidosis without coma (2) Weakness SNOMED Code(s): 28525549 ICD Code: R53.1 - WEAKNESS Status: Acute Priority: High Current Visit: Yes (3) Weight loss, unintentional SNOMED Code(s): 391850512 ICD Code: R63.4 - ABNORMAL WEIGHT LOSS Status: Acute Priority: High Current Visit: Yes (4) Diabetes mellitus, new onset SNOMED Code(s): 473667662, 379503714 ICD Code: E11.9 - TYPE 2 DIABETES MELLITUS WITHOUT COMPLICATIONS Status: Acute Priority: High Current Visit: Yes (5) Acute hyperglycemia SNOMED Code(s): 511334614 ICD Code: R73.9 - HYPERGLYCEMIA, UNSPECIFIED Status: Acute Priority: High Current Visit: Yes Problem List Initiated/Reviewed/Updated: Yes Orders Last 24hrs: Active Orders 24 hr Category Date Time Status Patient Status [ADT] Stat ADT 04/23/19 17:23 Ordered Ambulate [RC] PER UNIT ROUTINE Care 04/23/19 17:23 Ordered Diabetes Education [RC] Click to Edit Care 04/23/19 17:25 Ordered Intake and Output [RC] QSHIFT Care 04/23/19 17:25 Ordered Oxygen Therapy [RC] PRN Care 04/23/19 17:23 Ordered Telemetry Monitoring [Cardiac Monitoring] [RC] .As Care 04/23/19 17:39 Ordered Directed Up ad Carleen [RC] ASDIRECTED Care 04/23/19 17:23 Ordered Vital Signs [RC] Q1H Care 04/23/19 17:25 Inactive Vital Signs [RC] Q4H Care 04/23/19 17:23 Ordered Regular Diet [DIET] Diet 04/23/19 Breakfast Ordered BASIC METABOLIC PANEL,BMP [CHEM] Q4H Lab 04/23/19 21:30 Ordered CBC WITH AUTO DIFF [HEME] AM Lab 04/24/19 05:11 Ordered COMPREHENSIVE METABOLIC PN,CMP [CHEM] AM Lab 04/24/19 05:11 Ordered KETONES,BLOOD [CHEM] Routine Lab 04/23/19 17:44 Ordered KETONES,URINE [URIN] Routine Lab 04/23/19 17:44 Ordered LYME, TOTAL AB TEST/REFLEX Routine Lab 04/23/19 16:17 Received MAGNESIUM [CHEM] AM Lab 04/24/19 05:11 Ordered MAGNESIUM [CHEM] Routine Lab 04/23/19 21:30 Ordered PH,VENOUS [BG] DAILY Lab 04/24/19 05:11 Ordered PH,VENOUS [BG] Timed Lab 04/23/19 21:30 Ordered PHOSPHORUS [CHEM] AM Lab 04/24/19 05:11 Ordered PHOSPHORUS [CHEM] Routine Lab 04/23/19 21:30 Ordered Regular Insulin,Human 100 Units in Normal Saline @ 0.1 Med 04/23/19 17:45 Ordered UNITS/KG/HR Insulin Regular, Human [NovoLIN R] 100 unit Sodium Chloride 0.9% [Normal Saline] 100 ml IV TITRATE Sodium Chloride 0.45% with KCl [1/2 NS with 20 mEq KCl] Med 04/23/19 17:45 Ordered 1,000 ml IV ASDIRECTED Resuscitation Status Routine Resus Stat 04/23/19 17:23 Ordered Medication Orders Potassium Chloride/Sodium Chloride (1/2 Ns With 20 Meq Kcl) 1,000 mls @ 1,000 mls/hr IV ASDIRECTED VU Stop: 04/25/19 18:44 Insulin Human Regular 100 unit (/ Sodium Chloride) 100 mls @ 0.5 mls/hr IV TITRATE VU; Protocol Assessment/Plan Comment:: Patient admitted to ICU for telemetry and monitoring of I/Os and f/u labs in 4 hours. IV Fluid hydration and insulin drip. Recheck glucose hourly and adjust IV to D5 if glucose drops below 200.
[2019-04-23] MEDS ORDERED: Sodium Chloride 0.45% with KCl 1,000 ML ONE (18:38)
[2019-04-23] MEDS ORDERED: Sodium Chloride 0.9% 1,000 ML IV ONE (18:40)
[2019-04-23] MEDS ORDERED: Sodium Chloride 0.9% 1,000 ML IV SCH (19:45)
[2019-04-24] MEDS: Insulin Aspart 100 Units/ML 3 ML Pen SUBCUT SCH ×4 (07:48→20:34)
--- NOTE | 2019-04-24 08:29 | PCM.PN ---
- General Info Date of Service: 04/24/19 Subjective Update: Patient continues to feel tired and lethargic. He does appear slightly improved and clinically he has improved. Patient denies any pain or other concerns. He denies fever, no chills, no chest pain, no shortness of breath. - Review of Systems General: Reports: Weakness HEENT: Reports: No Symptoms Pulmonary: Reports: No Symptoms Cardiovascular: Reports: No Symptoms Gastrointestinal: Reports: No Symptoms Genitourinary: Reports: Frequency Musculoskeletal: Reports: No Symptoms Skin: Reports: No Symptoms Neurological: Reports: Weakness Psychiatric: Reports: No Symptoms - Patient Data Vitals - Most Recent: Last Vital Signs Temp 36.9 C 04/24/19 08:00 Pulse 89 04/24/19 08:00 Resp 19 04/24/19 08:00 BP 106/72 04/24/19 08:00 Pulse Ox 97 04/24/19 08:00 Weight - Most Recent: 77.383 kg I&O - Last 24 Hours: Intake & Output 04/23/19 04/24/19 04/24/19 22:59 06:59 14:59 Intake Total 350 4680 0 Output Total 400 200 0 Balance -50 4480 0 Lab Results Last 24 Hours: Laboratory Results - last 24 hr 04/23/19 04/23/19 04/23/19 Range/Units 16:17 16:17 16:17 WBC 9.4 D (4.0-11.0) K/uL RBC 5.50 (4.50-6.50) M/uL Hgb 16.0 (13.0-18.0) g/dL Hct 47.1 (40.0-54.0) % MCV 86 (76-96) fL MCH 29.1 (27.0-32.0) pg MCHC 34.0 (31.0-35.0) g/dL RDW 15.6 (11.0-16.0) % Plt Count 198 (150-400) K/uL MPV 11.5 H (6.0-10.0) fL Neut % (Auto) 78.3 H (45.0-70.0) % Lymph % (Auto) 12.6 L (20.0-40.0) % [place] % (Auto) 7.0 (3.0-10.0) % Eos % (Auto) 1.5 (1.0-5.0) % Baso % (Auto) 0.6 H (0.0-0.5) % Neut # (Auto) 7.35 (2.00-7.50) K/uL Lymph # (Auto) 1.18 L (1.50-4.00) K/uL [place] # (Auto) 0.66 (0.20-0.80) K/uL Eos # (Auto) 0.14 (0.04-0.40) K/uL Baso # (Auto) 0.06 (0.02-0.10) K/uL ESR 18 (0-20) mm/hr VBG pH (7.31-7.41) Sodium 139 (136-145) mmol/L Potassium 4.7 (3.5-5.1) mmol/L Chloride 100 (98-107) mmol/L Carbon Dioxide 29.5 (21.0-32.0) mmol/L Anion Gap 14.2 (5.0-15.0) mmol/L BUN 23 D (8-26) mg/dL Creatinine 1.75 H D (0.70-1.30) mg/dL Est Cr Clr Drug Dosing TNP Estimated GFR (MDRD) 40 L (>60) MLS/MIN BUN/Creatinine Ratio 13.1 (6-25) Glucose 624 H* D (74-100) mg/dL POC Glucose (74-110) mg/dL Hemoglobin A1c 11.5 H (4.5-6.2) % Calcium 10.0 (8.5-10.1) mg/dL Phosphorus (2.5-4.9) mg/dL Magnesium (1.8-2.4) mg/dL Total Bilirubin 1.1 H D (0.0-1.0) mg/dL AST 21 (15-37) U/L ALT 37 (12-78) U/L Alkaline Phosphatase 163 H (46-116) U/L C-React Prot High Sens 27.63 H (0.00-3.00) mg/dL B-Natriuretic Peptide 3640 H D (0-125) pg/mL Total Protein 7.5 (6.4-8.2) g/dL Albumin 3.4 (3.4-5.0) g/dL Globulin 4.1 (2.2-4.2) g/dL Albumin/Globulin Ratio 0.8 (0.8-2.0) TSH, Ultra Sensitive 1.996 (0.358-3.740) uIU/mL Ketones (NEGATIVE) Monoscreen (NEGATIVE) 04/23/19 04/23/19 04/23/19 Range/Units 16:17 17:19 17:44 WBC (4.0-11.0) K/uL RBC (4.50-6.50) M/uL Hgb (13.0-18.0) g/dL Hct (40.0-54.0) % MCV (76-96) fL MCH (27.0-32.0) pg MCHC (31.0-35.0) g/dL RDW (11.0-16.0) % Plt Count (150-400) K/uL MPV (6.0-10.0) fL Neut % (Auto) (45.0-70.0) % Lymph % (Auto) (20.0-40.0) % [place] % (Auto) (3.0-10.0) % Eos % (Auto) (1.0-5.0) % Baso % (Auto) (0.0-0.5) % Neut # (Auto) (2.00-7.50) K/uL Lymph # (Auto) (1.50-4.00) K/uL [place] # (Auto) (0.20-0.80) K/uL Eos # (Auto) (0.04-0.40) K/uL Baso # (Auto) (0.02-0.10) K/uL ESR (0-20) mm/hr VBG pH 7.41 (7.31-7.41) Sodium (136-145) mmol/L Potassium (3.5-5.1) mmol/L Chloride (98-107) mmol/L Carbon Dioxide (21.0-32.0) mmol/L Anion Gap (5.0-15.0) mmol/L BUN (8-26) mg/dL Creatinine (0.70-1.30) mg/dL Est Cr Clr Drug Dosing Estimated GFR (MDRD) (>60) MLS/MIN BUN/Creatinine Ratio (6-25) Glucose (74-100) mg/dL POC Glucose (74-110) mg/dL Hemoglobin A1c (4.5-6.2) % Calcium (8.5-10.1) mg/dL Phosphorus (2.5-4.9) mg/dL Magnesium (1.8-2.4) mg/dL Total Bilirubin (0.0-1.0) mg/dL AST (15-37) U/L ALT (12-78) U/L Alkaline Phosphatase (46-116) U/L C-React Prot High Sens (0.00-3.00) mg/dL B-Natriuretic Peptide (0-125) pg/mL Total Protein (6.4-8.2) g/dL Albumin (3.4-5.0) g/dL Globulin (2.2-4.2) g/dL Albumin/Globulin Ratio (0.8-2.0) TSH, Ultra Sensitive (0.358-3.740) uIU/mL Ketones Small (NEGATIVE) Monoscreen Negative (NEGATIVE) 04/23/19 04/23/19 04/23/19 Range/Units 19:54 21:30 21:30 WBC (4.0-11.0) K/uL RBC (4.50-6.50) M/uL Hgb (13.0-18.0) g/dL Hct (40.0-54.0) % MCV (76-96) fL MCH (27.0-32.0) pg MCHC (31.0-35.0) g/dL RDW (11.0-16.0) % Plt Count (150-400) K/uL MPV (6.0-10.0) fL Neut % (Auto) (45.0-70.0) % Lymph % (Auto) (20.0-40.0) % [place] % (Auto) (3.0-10.0) % Eos % (Auto) (1.0-5.0) % Baso % (Auto) (0.0-0.5) % Neut # (Auto) (2.00-7.50) K/uL Lymph # (Auto) (1.50-4.00) K/uL [place] # (Auto) (0.20-0.80) K/uL Eos # (Auto) (0.04-0.40) K/uL Baso # (Auto) (0.02-0.10) K/uL ESR (0-20) mm/hr VBG pH 7.36 (7.31-7.41) Sodium 143 (136-145) mmol/L Potassium 3.9 (3.5-5.1) mmol/L Chloride 106 (98-107) mmol/L Carbon Dioxide 29.1 (21.0-32.0) mmol/L Anion Gap 11.8 (5.0-15.0) mmol/L BUN 20 (8-26) mg/dL Creatinine 1.49 H (0.70-1.30) mg/dL Est Cr Clr Drug Dosing TNP Estimated GFR (MDRD) 48 L (>60) MLS/MIN BUN/Creatinine Ratio 13.4 (6-25) Glucose 398 H D (74-100) mg/dL POC Glucose > 500 H* (74-110) mg/dL Hemoglobin A1c (4.5-6.2) % Calcium 8.9 (8.5-10.1) mg/dL Phosphorus 2.9 (2.5-4.9) mg/dL Magnesium 2.0 (1.8-2.4) mg/dL Total Bilirubin (0.0-1.0) mg/dL AST (15-37) U/L ALT (12-78) U/L Alkaline Phosphatase (46-116) U/L C-React Prot High Sens (0.00-3.00) mg/dL B-Natriuretic Peptide (0-125) pg/mL Total Protein (6.4-8.2) g/dL Albumin (3.4-5.0) g/dL Globulin (2.2-4.2) g/dL Albumin/Globulin Ratio (0.8-2.0) TSH, Ultra Sensitive (0.358-3.740) uIU/mL Ketones (NEGATIVE) Monoscreen (NEGATIVE) 04/23/19 04/23/19 04/23/19 Range/Units 21:52 23:03 23:47 WBC (4.0-11.0) K/uL RBC (4.50-6.50) M/uL Hgb (13.0-18.0) g/dL Hct (40.0-54.0) % MCV (76-96) fL MCH (27.0-32.0) pg MCHC (31.0-35.0) g/dL RDW (11.0-16.0) % Plt Count (150-400) K/uL MPV (6.0-10.0) fL Neut % (Auto) (45.0-70.0) % Lymph % (Auto) (20.0-40.0) % [place] % (Auto) (3.0-10.0) % Eos % (Auto) (1.0-5.0) % Baso % (Auto) (0.0-0.5) % Neut # (Auto) (2.00-7.50) K/uL Lymph # (Auto) (1.50-4.00) K/uL [place] # (Auto) (0.20-0.80) K/uL Eos # (Auto) (0.04-0.40) K/uL Baso # (Auto) (0.02-0.10) K/uL ESR (0-20) mm/hr VBG pH (7.31-7.41) Sodium (136-145) mmol/L Potassium (3.5-5.1) mmol/L Chloride (98-107) mmol/L Carbon Dioxide (21.0-32.0) mmol/L Anion Gap (5.0-15.0) mmol/L BUN (8-26) mg/dL Creatinine (0.70-1.30) mg/dL Est Cr Clr Drug Dosing Estimated GFR (MDRD) (>60) MLS/MIN BUN/Creatinine Ratio (6-25) Glucose (74-100) mg/dL POC Glucose 432 H* 285 H 146 H (74-110) mg/dL Hemoglobin A1c (4.5-6.2) % Calcium (8.5-10.1) mg/dL Phosphorus (2.5-4.9) mg/dL Magnesium (1.8-2.4) mg/dL Total Bilirubin (0.0-1.0) mg/dL AST (15-37) U/L ALT (12-78) U/L Alkaline Phosphatase (46-116) U/L C-React Prot High Sens (0.00-3.00) mg/dL B-Natriuretic Peptide (0-125) pg/mL Total Protein (6.4-8.2) g/dL Albumin (3.4-5.0) g/dL Globulin (2.2-4.2) g/dL Albumin/Globulin Ratio (0.8-2.0) TSH, Ultra Sensitive (0.358-3.740) uIU/mL Ketones (NEGATIVE) Monoscreen (NEGATIVE) 04/24/19 04/24/19 04/24/19 Range/Units 00:27 02:08 03:08 WBC (4.0-11.0) K/uL RBC (4.50-6.50) M/uL Hgb (13.0-18.0) g/dL Hct (40.0-54.0) % MCV (76-96) fL MCH (27.0-32.0) pg MCHC (31.0-35.0) g/dL RDW (11.0-16.0) % Plt Count (150-400) K/uL MPV (6.0-10.0) fL Neut % (Auto) (45.0-70.0) % Lymph % (Auto) (20.0-40.0) % [place] % (Auto) (3.0-10.0) % Eos % (Auto) (1.0-5.0) % Baso % (Auto) (0.0-0.5) % Neut # (Auto) (2.00-7.50) K/uL Lymph # (Auto) (1.50-4.00) K/uL [place] # (Auto) (0.20-0.80) K/uL Eos # (Auto) (0.04-0.40) K/uL Baso # (Auto) (0.02-0.10) K/uL ESR (0-20) mm/hr VBG pH (7.31-7.41) Sodium (136-145) mmol/L Potassium (3.5-5.1) mmol/L Chloride (98-107) mmol/L Carbon Dioxide (21.0-32.0) mmol/L Anion Gap (5.0-15.0) mmol/L BUN (8-26) mg/dL Creatinine (0.70-1.30) mg/dL Est Cr Clr Drug Dosing Estimated GFR (MDRD) (>60) MLS/MIN BUN/Creatinine Ratio (6-25) Glucose (74-100) mg/dL POC Glucose 67 L 294 H 333 H (74-110) mg/dL Hemoglobin A1c (4.5-6.2) % Calcium (8.5-10.1) mg/dL Phosphorus (2.5-4.9) mg/dL Magnesium (1.8-2.4) mg/dL Total Bilirubin (0.0-1.0) mg/dL AST (15-37) U/L ALT (12-78) U/L Alkaline Phosphatase (46-116) U/L C-React Prot High Sens (0.00-3.00) mg/dL B-Natriuretic Peptide (0-125) pg/mL Total Protein (6.4-8.2) g/dL Albumin (3.4-5.0) g/dL Globulin (2.2-4.2) g/dL Albumin/Globulin Ratio (0.8-2.0) TSH, Ultra Sensitive (0.358-3.740) uIU/mL Ketones (NEGATIVE) Monoscreen (NEGATIVE) 04/24/19 04/24/19 04/24/19 Range/Units 04:13 05:07 06:01 WBC (4.0-11.0) K/uL RBC (4.50-6.50) M/uL Hgb (13.0-18.0) g/dL Hct (40.0-54.0) % MCV (76-96) fL MCH (27.0-32.0) pg MCHC (31.0-35.0) g/dL RDW (11.0-16.0) % Plt Count (150-400) K/uL MPV (6.0-10.0) fL Neut % (Auto) (45.0-70.0) % Lymph % (Auto) (20.0-40.0) % [place] % (Auto) (3.0-10.0) % Eos % (Auto) (1.0-5.0) % Baso % (Auto) (0.0-0.5) % Neut # (Auto) (2.00-7.50) K/uL Lymph # (Auto) (1.50-4.00) K/uL [place] # (Auto) (0.20-0.80) K/uL Eos # (Auto) (0.04-0.40) K/uL Baso # (Auto) (0.02-0.10) K/uL ESR (0-20) mm/hr VBG pH (7.31-7.41) Sodium (136-145) mmol/L Potassium (3.5-5.1) mmol/L Chloride (98-107) mmol/L Carbon Dioxide (21.0-32.0) mmol/L Anion Gap (5.0-15.0) mmol/L BUN (8-26) mg/dL Creatinine (0.70-1.30) mg/dL Est Cr Clr Drug Dosing Estimated GFR (MDRD) (>60) MLS/MIN BUN/Creatinine Ratio (6-25) Glucose (74-100) mg/dL POC Glucose 365 H 309 H 424 H* (74-110) mg/dL Hemoglobin A1c (4.5-6.2) % Calcium (8.5-10.1) mg/dL Phosphorus (2.5-4.9) mg/dL Magnesium (1.8-2.4) mg/dL Total Bilirubin (0.0-1.0) mg/dL AST (15-37) U/L ALT (12-78) U/L Alkaline Phosphatase (46-116) U/L C-React Prot High Sens (0.00-3.00) mg/dL B-Natriuretic Peptide (0-125) pg/mL Total Protein (6.4-8.2) g/dL Albumin (3.4-5.0) g/dL Globulin (2.2-4.2) g/dL Albumin/Globulin Ratio (0.8-2.0) TSH, Ultra Sensitive (0.358-3.740) uIU/mL Ketones (NEGATIVE) Monoscreen (NEGATIVE) 04/24/19 04/24/19 04/24/19 Range/Units 07:05 07:05 07:05 WBC 10.6 (4.0-11.0) K/uL RBC 5.02 (4.50-6.50) M/uL Hgb 14.6 (13.0-18.0) g/dL Hct 43.2 (40.0-54.0) % MCV 86 (76-96) fL MCH 29.1 (27.0-32.0) pg MCHC 33.8 (31.0-35.0) g/dL RDW 15.8 (11.0-16.0) % Plt Count 188 (150-400) K/uL MPV 11.8 H (6.0-10.0) fL Neut % (Auto) 79.2 H (45.0-70.0) % Lymph % (Auto) 11.8 L (20.0-40.0) % [place] % (Auto) 6.4 (3.0-10.0) % Eos % (Auto) 2.2 (1.0-5.0) % Baso % (Auto) 0.4 (0.0-0.5) % Neut # (Auto) 8.39 H (2.00-7.50) K/uL Lymph # (Auto) 1.25 L (1.50-4.00) K/uL [place] # (Auto) 0.68 (0.20-0.80) K/uL Eos # (Auto) 0.23 (0.04-0.40) K/uL Baso # (Auto) 0.04 (0.02-0.10) K/uL ESR (0-20) mm/hr VBG pH 7.38 (7.31-7.41) Sodium 137 (136-145) mmol/L Potassium 4.4 (3.5-5.1) mmol/L Chloride 103 (98-107) mmol/L Carbon Dioxide 23.6 (21.0-32.0) mmol/L Anion Gap 14.8 (5.0-15.0) mmol/L BUN 20 (8-26) mg/dL Creatinine 1.22 (0.70-1.30) mg/dL Est Cr Clr Drug Dosing TNP Estimated GFR (MDRD) > 60 (>60) MLS/MIN BUN/Creatinine Ratio 16.4 (6-25) Glucose 320 H (74-100) mg/dL POC Glucose (74-110) mg/dL Hemoglobin A1c (4.5-6.2) % Calcium 8.4 L (8.5-10.1) mg/dL Phosphorus 3.5 (2.5-4.9) mg/dL Magnesium 1.6 L (1.8-2.4) mg/dL Total Bilirubin 0.7 D (0.0-1.0) mg/dL AST 26 (15-37) U/L ALT 30 (12-78) U/L Alkaline Phosphatase 130 H (46-116) U/L C-React Prot High Sens (0.00-3.00) mg/dL B-Natriuretic Peptide (0-125) pg/mL Total Protein 6.1 L (6.4-8.2) g/dL Albumin 2.7 L (3.4-5.0) g/dL Globulin 3.4 (2.2-4.2) g/dL Albumin/Globulin Ratio 0.8 (0.8-2.0) TSH, Ultra Sensitive (0.358-3.740) uIU/mL Ketones (NEGATIVE) Monoscreen (NEGATIVE) Med Orders - Current: Current Medications Potassium Chloride/Sodium Chloride (1/2 Ns With 20 Meq Kcl) 1,000 mls @ 250 mls /hr IV ASDIRECTED VU Stop: 04/25/19 21:44 Last Admin: 04/23/19 21:45 Dose: 250 mls/hr Insulin Human Regular 100 unit (/ Sodium Chloride) 100 mls @ 7.75 mls/hr IV TITRATE VU; Protocol Last Titration: 04/24/19 00:06 Dose: 0.26 units/kg/hr, 20.15 mls/hr Insulin Aspart (Novolog) 0 unit SUBCUT TIDAC VU; Protocol Last Admin: 04/24/19 07:48 Dose: 8 units Discontinued Medications Dextrose/Water (Dextrose 50% In Water) 50 ml IVPUSH ONETIME ONE Stop: 04/23/19 17:26 Last Admin: 04/23/19 18:59 Dose: Not Given Potassium Chloride/Sodium Chloride (1/2 Ns With 20 Meq Kcl) Confirm Administered Dose 1,000 mls @ as directed .ROUTE .STK-MED ONE Stop: 04/23/19 18:39 Last Admin: 04/23/19 18:59 Dose: Not Given Sodium Chloride (Normal Saline) 1,000 mls @ 999 mls/hr IV .BOLUS ONE Stop: 04/23/19 19:40 Last Admin: 04/23/19 18:40 Dose: 999 mls/hr Sodium Chloride (Normal Saline) 1,000 mls @ 500 mls/hr IV ASDIRECTED VU Stop: 04/23/19 21:44 Last Admin: 04/23/19 19:47 Dose: 500 mls/hr - Exam General: Alert, Oriented, Lethargic HEENT: Pupils Equal, Pupils Reactive, EOMI Neck: Supple Lungs: Clear to Auscultation, Normal Respiratory Effort Cardiovascular: Regular Rate, Regular Rhythm GI/Abdominal Exam: Normal Bowel Sounds Extremities: Normal Inspection - Problem List & Annotations (1) Diabetic ketoacidosis SNOMED Code(s): 291656202, 066210392 Code(s): E11.10 - TYPE 2 DIABETES MELLITUS WITH KETOACIDOSIS WITHOUT COMA Status: Acute Priority: High Current Visit: Yes Qualifiers: Diabetes mellitus type: type 2 Diabetes mellitus complication detail: without coma Qualified Code(s): E11.10 - Type 2 diabetes mellitus with ketoacidosis without coma (2) Weakness SNOMED Code(s): 34303521 Code(s): R53.1 - WEAKNESS Status: Acute Priority: High Current Visit: Yes (3) Weight loss, unintentional SNOMED Code(s): 002485077 Code(s): R63.4 - ABNORMAL WEIGHT LOSS Status: Acute Priority: High Current Visit: Yes (4) Diabetes mellitus, new onset SNOMED Code(s): 887875057, 347743919 Code(s): E11.9 - TYPE 2 DIABETES MELLITUS WITHOUT COMPLICATIONS Status: Acute Priority: High Current Visit: Yes (5) Acute hyperglycemia SNOMED Code(s): 960457959 Code(s): R73.9 - HYPERGLYCEMIA, UNSPECIFIED Status: Acute Priority: High Current Visit: Yes - Problem List Review Problem List Initiated/Reviewed/Updated: Yes - My Orders Last 24 Hours: My Active Orders 04/23/19 16:17 LYME, TOTAL AB TEST/REFLEX Routine 04/23/19 17:23 Patient Status [ADT] Stat Ambulate [RC] PER UNIT ROUTINE Oxygen Therapy [RC] 23 Up ad Carleen [RC] ASDIRECTED Vital Signs [RC] Q1H Resuscitation Status Routine 04/23/19 17:25 Diabetes Education [RC] Click to Edit Intake and Output [RC] Q1HR Vital Signs [RC] Q1H 04/23/19 17:39 Telemetry Monitoring [Cardiac Monitoring] [RC] 08,20 04/23/19 17:44 KETONES,URINE [URIN] Routine 04/23/19 17:45 Insulin Regular, Human [NovoLIN R] 100 unit Sodium Chloride 0.9% [Normal Saline] 100 ml IV TITRATE Sodium Chloride 0.45% with KCl [1/2 NS with 20 mEq KCl] 1,000 ml IV ASDIRECTED 04/23/19 17:50 CULTURE MRSA SURVEY [RM] Routine 04/23/19 18:01 Blood Glucose Check, Bedside [RC] Q1HR 04/24/19 07:05 C-PEPTIDE, SERUM Routine GONSALO-65 AUTOANTIBODY Routine 04/24/19 07:53 URINALYSIS W/MICROSCOPIC [UA W/MICROSCOPIC] [URIN] Routine 04/24/19 07:59 EKG Documentation Completion [RC] ASDIRECTED EKG 12 Lead [EK] Routine 04/24/19 08:23 TROPONIN I [CHEM] Stat 04/24/19 Breakfast Consistent Carbohydrate Diet [DIET] 04/25/19 05:11 BASIC METABOLIC PANEL,BMP [CHEM] AM CBC WITH AUTO DIFF [HEME] AM - Plan Plan:: Patient admitted to ICU for telemetry and monitoring of I/Os and f/u labs in 4 hours. IV Fluid hydration and insulin drip. Recheck glucose hourly and adjust IV to D5 if glucose drops below 200. 04/24/19 Patient to have f/u EKG. Labs improved. We will continue hydration and continue insulin sliding scale. (Patient's insulin drip was stopped due to a drop in glucose levels to 67, but I do not see a change of fluids to add D5 for sugars under 200 as discussed.) Continue current care and f/u labs in am. Repeat glucose checks as directed.
[2019-04-24] MEDS ORDERED: Insulin Aspart 100 Units/ML 3 ML Pen SUBCUT ONE (13:51)
[2019-04-25] MEDS: Insulin Aspart 100 Units/ML 3 ML Pen SUBCUT SCH ×4 (00:20→12:00)
[2019-04-25] MEDS ORDERED: Albuterol 8 GM Inhaler INH PRN (12:01)
[2019-04-25] MEDS ORDERED: Insulin Aspart 100 Units/ML 3 ML Pen SUBCUT ONE (13:35)
--- NOTE | 2019-04-25 14:18 | PCM.DCSUM1 ---
Discharge Summary - Discharge Data Discharge Date: 04/25/19 Discharge Disposition: Home, Self-Care 01 Condition: Good - Referral to Home Health Primary Care Physician: PCP None - Discharge Diagnosis/Problem(s) (1) Diabetic ketoacidosis SNOMED Code(s): 255805392, 105549153 ICD Code: E11.10 - TYPE 2 DIABETES MELLITUS WITH KETOACIDOSIS WITHOUT COMA Status: Resolved Priority: High Current Visit: Yes Qualifiers: Diabetes mellitus type: type 2 Diabetes mellitus complication detail: without coma Qualified Code(s): E11.10 - Type 2 diabetes mellitus with ketoacidosis without coma (2) Weakness SNOMED Code(s): 66263269 ICD Code: R53.1 - WEAKNESS Status: Resolved Priority: High Current Visit: Yes (3) Weight loss, unintentional SNOMED Code(s): 833082387 ICD Code: R63.4 - ABNORMAL WEIGHT LOSS Status: Acute Priority: Medium Current Visit: Yes (4) Diabetes mellitus, new onset SNOMED Code(s): 594375535, 031186954 ICD Code: E11.9 - TYPE 2 DIABETES MELLITUS WITHOUT COMPLICATIONS Status: Acute Priority: High Current Visit: Yes (5) Acute hyperglycemia SNOMED Code(s): 367652186 ICD Code: R73.9 - HYPERGLYCEMIA, UNSPECIFIED Status: Resolved Priority: High Current Visit: Yes - Patient Instructions Diet: Heart Healthy Diet Activity: As Tolerated - Discharge Plan Prescriptions/Med Rec: Insulin Aspart [NovoLOG] 8 unit SUBCUT TIDAC #3 pen Insulin Glarg,Human.Rec.Analog [Lantus Solostar] 15 unit SUBCUT DAILY #3 pen Home Medications: Home Meds Carvedilol [Coreg] 3.125 mg PO BID 08/29/18 [History] Omeprazole 20 mg PO ACBREAKFAST 08/29/18 [History] Torsemide [Demadex] 40 mg PO DAILY 08/29/18 [History] Albuterol [Ventolin HFA] 1 - 2 inh PO Q6H PRN 02/22/19 [History] Aspirin [Ecotrin EC] 81 mg PO DAILY 02/22/19 [History] Citalopram [Citalopram HBr] 20 mg PO DAILY 02/22/19 [History] Fluticasone/Salmeterol [Advair Hfa 230-21 Mcg Inhaler] 1 puff IH Q4HR PRN [History] Lisinopril 5 mg PO DAILY 02/22/19 [History] Torsemide [Demadex] 20 mg PO DAILY 02/22/19 [History] Insulin Aspart [NovoLOG] 8 unit SUBCUT TIDAC #3 pen 04/25/19 [Rx] Insulin Glarg,Human.Rec.Analog [Lantus Solostar] 15 unit SUBCUT DAILY #3 pen 01/04 [Rx] Patient Handouts: Carbohydrate Counting for Diabetes Mellitus, Pediatric, Diabetes Mellitus and Foot Care, Insulin Aspart injection, Diabetic Ketoacidosis , Insulin Glargine injection, Diabetes Mellitus and Exercise, Diabetes Mellitus and Nutrition, Adult - Discharge Summary/Plan Comment DC Time >30 min.: Yes Discharge Summary/Plan Comment: Discussion of insulin use, diabetic education and refills. Discussed glucometer use and f/u in clinic in 1-2 weeks or sooner as needed. F/u as directed. Discussed diabetes and close monitoring and meals with insulin. - Patient Data Vitals - Most Recent: Last Vital Signs Temp 36.6 C 04/25/19 07:49 Pulse 87 04/25/19 07:49 Resp 16 04/25/19 07:49 BP 110/82 04/25/19 07:49 Pulse Ox 94 L 04/25/19 07:49 Weight - Most Recent: 80.195 kg I&O - Last 24 hours: Intake & Output 04/24/19 04/25/19 04/25/19 22:59 06:59 14:59 Intake Total 340 470 0 Output Total 0 300 0 Balance 340 170 0 Lab Results - Last 24 hrs: Laboratory Results - last 24 hr 04/24/19 04/24/19 04/24/19 Range/Units 14:47 14:48 15:51 WBC (4.0-11.0) K/uL RBC (4.50-6.50) M/uL Hgb (13.0-18.0) g/dL Hct (40.0-54.0) % MCV (76-96) fL MCH (27.0-32.0) pg MCHC (31.0-35.0) g/dL RDW (11.0-16.0) % Plt Count (150-400) K/uL MPV (6.0-10.0) fL Neut % (Auto) (45.0-70.0) % Lymph % (Auto) (20.0-40.0) % [place] % (Auto) (3.0-10.0) % Eos % (Auto) (1.0-5.0) % Baso % (Auto) (0.0-0.5) % Neut # (Auto) (2.00-7.50) K/uL Lymph # (Auto) (1.50-4.00) K/uL [place] # (Auto) (0.20-0.80) K/uL Eos # (Auto) (0.04-0.40) K/uL Baso # (Auto) (0.02-0.10) K/uL Sodium (136-145) mmol/L Potassium (3.5-5.1) mmol/L Chloride (98-107) mmol/L Carbon Dioxide (21.0-32.0) mmol/L Anion Gap (5.0-15.0) mmol/L BUN (8-26) mg/dL Creatinine (0.70-1.30) mg/dL Est Cr Clr Drug Dosing mL/min Estimated GFR (MDRD) (>60) MLS/MIN BUN/Creatinine Ratio (6-25) Glucose (74-100) mg/dL POC Glucose 287 H 339 H 237 H (74-110) mg/dL Calcium (8.5-10.1) mg/dL 04/24/19 04/24/19 04/24/19 Range/Units 16:14 19:01 23:05 WBC (4.0-11.0) K/uL RBC (4.50-6.50) M/uL Hgb (13.0-18.0) g/dL Hct (40.0-54.0) % MCV (76-96) fL MCH (27.0-32.0) pg MCHC (31.0-35.0) g/dL RDW (11.0-16.0) % Plt Count (150-400) K/uL MPV (6.0-10.0) fL Neut % (Auto) (45.0-70.0) % Lymph % (Auto) (20.0-40.0) % [place] % (Auto) (3.0-10.0) % Eos % (Auto) (1.0-5.0) % Baso % (Auto) (0.0-0.5) % Neut # (Auto) (2.00-7.50) K/uL Lymph # (Auto) (1.50-4.00) K/uL [place] # (Auto) (0.20-0.80) K/uL Eos # (Auto) (0.04-0.40) K/uL Baso # (Auto) (0.02-0.10) K/uL Sodium (136-145) mmol/L Potassium (3.5-5.1) mmol/L Chloride (98-107) mmol/L Carbon Dioxide (21.0-32.0) mmol/L Anion Gap (5.0-15.0) mmol/L BUN (8-26) mg/dL Creatinine (0.70-1.30) mg/dL Est Cr Clr Drug Dosing mL/min Estimated GFR (MDRD) (>60) MLS/MIN BUN/Creatinine Ratio (6-25) Glucose (74-100) mg/dL POC Glucose 207 H 251 H 285 H (74-110) mg/dL Calcium (8.5-10.1) mg/dL 04/25/19 04/25/19 04/25/19 Range/Units 03:08 06:38 08:30 WBC 8.7 (4.0-11.0) K/uL RBC 5.16 (4.50-6.50) M/uL Hgb 15.1 (13.0-18.0) g/dL Hct 44.6 (40.0-54.0) % MCV 86 (76-96) fL MCH 29.3 (27.0-32.0) pg MCHC 33.9 (31.0-35.0) g/dL RDW 16.2 H (11.0-16.0) % Plt Count 177 (150-400) K/uL MPV 12.2 H (6.0-10.0) fL Neut % (Auto) 75.4 H (45.0-70.0) % Lymph % (Auto) 15.1 L (20.0-40.0) % [place] % (Auto) 6.6 (3.0-10.0) % Eos % (Auto) 2.6 (1.0-5.0) % Baso % (Auto) 0.3 (0.0-0.5) % Neut # (Auto) 6.57 (2.00-7.50) K/uL Lymph # (Auto) 1.32 L (1.50-4.00) K/uL [place] # (Auto) 0.58 (0.20-0.80) K/uL Eos # (Auto) 0.23 (0.04-0.40) K/uL Baso # (Auto) 0.03 (0.02-0.10) K/uL Sodium (136-145) mmol/L Potassium (3.5-5.1) mmol/L Chloride (98-107) mmol/L Carbon Dioxide (21.0-32.0) mmol/L Anion Gap (5.0-15.0) mmol/L BUN (8-26) mg/dL Creatinine (0.70-1.30) mg/dL Est Cr Clr Drug Dosing mL/min Estimated GFR (MDRD) (>60) MLS/MIN BUN/Creatinine Ratio (6-25) Glucose (74-100) mg/dL POC Glucose 265 H 232 H (74-110) mg/dL Calcium (8.5-10.1) mg/dL 04/25/19 04/25/19 04/25/19 Range/Units 08:30 10:49 12:26 WBC (4.0-11.0) K/uL RBC (4.50-6.50) M/uL Hgb (13.0-18.0) g/dL Hct (40.0-54.0) % MCV (76-96) fL MCH (27.0-32.0) pg MCHC (31.0-35.0) g/dL RDW (11.0-16.0) % Plt Count (150-400) K/uL MPV (6.0-10.0) fL Neut % (Auto) (45.0-70.0) % Lymph % (Auto) (20.0-40.0) % [place] % (Auto) (3.0-10.0) % Eos % (Auto) (1.0-5.0) % Baso % (Auto) (0.0-0.5) % Neut # (Auto) (2.00-7.50) K/uL Lymph # (Auto) (1.50-4.00) K/uL [place] # (Auto) (0.20-0.80) K/uL Eos # (Auto) (0.04-0.40) K/uL Baso # (Auto) (0.02-0.10) K/uL Sodium 139 (136-145) mmol/L Potassium 4.8 (3.5-5.1) mmol/L Chloride 106 (98-107) mmol/L Carbon Dioxide 24.8 (21.0-32.0) mmol/L Anion Gap 13.0 (5.0-15.0) mmol/L BUN 20 (8-26) mg/dL Creatinine 1.23 (0.70-1.30) mg/dL Est Cr Clr Drug Dosing 61.02 mL/min Estimated GFR (MDRD) 60 (>60) MLS/MIN BUN/Creatinine Ratio 16.3 (6-25) Glucose 299 H (74-100) mg/dL POC Glucose 337 H 412 H* (74-110) mg/dL Calcium 8.8 (8.5-10.1) mg/dL [place] Results - Last 24 hrs: Microbiology 04/23/19 17:50 MRSA Surveillance Culture - Final Nasal, Left NO MRSA ISOLATED Med Orders - Current: Current Medications Albuterol (Ventolin Hfa) 0 gm INH Q6H PRN PRN Reason: Shortness of Breath Aspirin (Halfprin) 81 mg PO DAILY [facility] Carvedilol (Coreg) 3.125 mg PO BID VU Citalopram Hydrobromide (Celexa) 20 mg PO DAILY VU Potassium Chloride/Sodium Chloride (1/2 Ns With 20 Meq Kcl) 1,000 mls @ 250 mls /hr IV ASDIRECTED VU Stop: 04/25/19 21:44 Last Admin: 04/23/19 21:45 Dose: 250 mls/hr Insulin Human Regular 100 unit (/ Sodium Chloride) 100 mls @ 7.75 mls/hr IV TITRATE VU; Protocol Last Titration: 04/24/19 00:06 Dose: 0.26 units/kg/hr, 20.15 mls/hr Insulin Aspart (Novolog) 0 unit SUBCUT TIDAC VU; Protocol Last Admin: 04/25/19 07:51 Dose: 4 units Lisinopril (Prinivil) 5 mg PO DAILY [facility] Non-Formulary Medication (Fluticasone/Salmeterol [Advair Hfa 230-21 Mcg Inhaler] ) 1 puff IH Q4HR PRN PRN Reason: Shortness of Breath Omeprazole (Omeprazole) 20 mg PO ACBREAKFAST VU Torsemide (Demadex) 20 mg PO DAILY VU Discontinued Medications Dextrose/Water (Dextrose 50% In Water) 50 ml IVPUSH ONETIME ONE Stop: 04/23/19 17:26 Last Admin: 04/23/19 18:59 Dose: Not Given Potassium Chloride/Sodium Chloride (1/2 Ns With 20 Meq Kcl) Confirm Administered Dose 1,000 mls @ as directed .ROUTE .STK-MED ONE Stop: 04/23/19 18:39 Last Admin: 04/23/19 18:59 Dose: Not Given Sodium Chloride (Normal Saline) 1,000 mls @ 999 mls/hr IV .BOLUS ONE Stop: 04/23/19 19:40 Last Admin: 04/23/19 18:40 Dose: 999 mls/hr Sodium Chloride (Normal Saline) 1,000 mls @ 500 mls/hr IV ASDIRECTED VU Stop: 04/23/19 21:44 Last Admin: 04/23/19 19:47 Dose: 500 mls/hr Insulin Aspart (Novolog) 14 unit SUBCUT ONETIME ONE Stop: 04/24/19 13:52 Last Admin: 04/24/19 14:27 Dose: 14 units Insulin Aspart (Novolog) 14 unit SUBCUT ONETIME ONE Stop: 04/25/19 13:36 Last Admin: 04/25/19 14:00 Dose: 14 units
[2019-04-25] MEDS ORDERED: Carvedilol 3.125 MG Tab PO SCH (20:00)
[2019-04-26] MEDS ORDERED: Omeprazole 20 MG Cap.CR PO SCH (07:00)
[2019-04-26] MEDS ORDERED: Citalopram 20 MG Tab PO SCH (08:00)
[2019-04-26] MEDS ORDERED: Aspirin 81 MG Tab.EC PO SCH (08:00)
[2019-04-26] MEDS ORDERED: Torsemide 20 MG Tab PO SCH (08:00)
[2019-04-26] MEDS ORDERED: Lisinopril 5 MG Tab PO SCH (08:00)
[2019-04-29 12:08] LABS: LYME IGG/IGM AB <0.91 ISR (0.00-0.90)
== END 2019-04-25 14:02 | disposition home or self-care (01) | DRG 639 ==
LOC: LB.CLINIC 16:10 → LB.MS 17:23 → UNDOADMIN 18:24 → LB.MS 04-24 11:00
PROVIDERS: ADMIT Family Medicine; ATTEND Family Medicine
DX: E11.10 Type 2 diabetes mellitus with ketoacidosis without coma (principal); I11.0 Hypertensive heart disease with heart failure; I50.9 Heart failure, unspecified; R63.4 Abnormal weight loss; J44.9 Chronic obstructive pulmonary disease, unspecified; E11.65 Type 2 diabetes mellitus with hyperglycemia; K21.9 Gastro-esophageal reflux disease without esophagitis; Z79.82 Long term (current) use of aspirin; Z79.899 Other long term (current) drug therapy; Z88.8 Allergy status to other drugs, medicaments and biological substances
CPT/HCPCS: 36415; 80048; 80053; 81001; 82009; 82800; 82962; 83036; 83516; 83735; 83880; 84100; 84443; 84484; 84681; 85025; 85651; 86141; 86308; 86618; 93005; J1815-GY; J3480; J7030

== ENCOUNTER 2019-04-30 22:15 | Emergency (ER) | payer MEDICAID ==
--- NOTE | 2019-05-01 00:07 | PN ---
DATE OF VISIT: 04/30/2019 HISTORY OF PRESENT ILLNESS: A 59-year-old male here with complaints of some shortness of breath, and he has noticed more swelling in his ankles and lower legs. The patient does not feel sick. He is supposed to be taking torsemide b.i.d., and he tells me that he has not been taking it the last few days very much because he does not like getting up at night to pee. The patient is wondering if he can get urinal. The patient has recently been diagnosed with diabetes and was in the hospital a week ago for DKA where he received a lot of fluid. The patient is currently taking insulin as well as his other medications. He does have history of CHF and COPD. The patient tells me he has been taking his other medications as directed. He just does not like to have to get up at night several times to void. OBJECTIVE: GENERAL APPEARANCE: The patient is awake and alert. No obvious distress. VITAL SIGNS: Reviewed. He is afebrile. Pulse is 94, blood pressure 129/76, respirations 20. LUNG EXAM: He has mild expiratory rales in both bases. I do not hear any wheezes. The patient has just slightly reduced air exchange throughout the lung munguia. SKIN: Warm and dry. CARDIAC: Heart sounds distinct without murmurs. Examining the patient's lower legs reveals mild to moderate edema bilaterally. DIAGNOSIS: Fluid retention secondary to congestive heart failure. TREATMENT PLAN: I had a conversation with the patient about the need to take his diuretic. I advised the patient that this is very important, especially after receiving extra fluid a few days ago. It is even more important than a normal day would be for him. The patient will be given a urinal to use at home. He is not otherwise sick. I advised the patient he needs to get on his medication taking a dose this evening and he agrees. He has been taking 40 mg in the morning and 20 mg in the afternoon. He may want to take his afternoon dose sooner or earlier in the day by a couple of hours. If he takes his initial dose right after he gets up, which he states is usually around 7 o'clock, he can take his second dose a couple of hours earlier than 2 p.m. which is the time he states he is supposed to take it. I also want the patient to follow up in the clinic for recheck, and we may need may need to modify his diuretic even more to ensure that he keeps taking it. The patient also states that he had not been seen by Cardiology recently for his CHF symptoms since he moved up here. He is to discuss this as well with his primary care provider and get in with a dryer and washer mechanic that comes here as soon as possible for recheck. The patient is here with his significant other, and they agree with the treatment plan and have no further questions. DOMINIQUE/ROYCE /[id number] MTDPeter
== END 2019-04-30 22:53 | disposition home or self-care (01) ==
LOC: LB.ED 22:15
DX: I50.9 Heart failure, unspecified (principal); J44.9 Chronic obstructive pulmonary disease, unspecified; E11.9 Type 2 diabetes mellitus without complications
CPT/HCPCS: 99284

== ENCOUNTER 2019-05-20 02:48 | Emergency (ER) | payer MEDICAID ==
[2019-05-20 03:05] VITALS: BP 106/73; PULSE 98
[2019-05-20] MEDS: Furosemide 40 MG Tab PO ONE (03:10)
--- NOTE | 2019-05-20 03:16 | EDM.PDOC ---
ED HPI GENERAL MEDICAL PROBLEM - General Chief Complaint: General Stated Complaint: RETAINING FLUID Time Seen by Provider: 05/20/19 03:10 Source of Information: Reports: Patient History Limitations: Reports: No Limitations - History of Present Illness INITIAL COMMENTS - FREE TEXT/NARRATIVE: This patient presents to the ED for evaluation of ankle edema. He states he has had increased edema for the past 2 days. He states that he has difficulty breathing when he tries to lay flat. He also states that he has not missed taking his medications. He denies other injuries or concerns. Onset: Gradual Onset Date: 05/17/19 Duration: Getting Worse Location: Reports: Lower Extremity, Left, Lower Extremity, Right Improves with: Reports: None Worsens with: Reports: None - Related Data Allergies Allergy/AdvReac Type Severity Reaction Status Date / Time acetaminophen [From Tylenol] Allergy Nausea Verified 04/30/19 23:06 Home Meds: Home Meds Carvedilol [Coreg] 3.125 mg PO BID 08/29/18 [History] Omeprazole 20 mg PO ACBREAKFAST 08/29/18 [History] Torsemide [Demadex] 40 mg PO DAILY 08/29/18 [History] Albuterol [Ventolin HFA] 1 - 2 inh PO Q6H PRN 02/22/19 [History] Aspirin [Ecotrin EC] 81 mg PO DAILY 02/22/19 [History] Citalopram [Citalopram HBr] 20 mg PO DAILY 02/22/19 [History] Fluticasone/Salmeterol [Advair Hfa 230-21 Mcg Inhaler] 1 puff IH Q4HR PRN [History] Lisinopril 5 mg PO DAILY 02/22/19 [History] Torsemide [Demadex] 20 mg PO DAILY 02/22/19 [History] Insulin Aspart [NovoLOG] 8 unit SUBCUT TIDAC #3 pen 04/25/19 [Rx] Insulin Glarg,Human.Rec.Analog [Lantus Solostar] 15 unit SUBCUT DAILY #3 pen 01/04 [Rx] Past Medical History HEENT History: Reports: Hard of Hearing, Impaired Vision Cardiovascular History: Reports: Heart Failure, High Cholesterol, Hypertension Respiratory History: Reports: COPD Gastrointestinal History: Reports: GERD Genitourinary History: Reports: Chronic Renal Insuffiency Musculoskeletal History: Reports: Arthritis Endocrine/Metabolic History: Reports: Diabetes, Type II Other Endocrine/Metabolic History: new onset DM II Social & Family History - Family History Family Medical History: Noncontributory - Tobacco Use Smoking Status *Q: Current Every Day Smoker - Caffeine Use Caffeine Use: Reports: Coffee ED ROS GENERAL - Review of Systems Review Of Systems: See Below Constitutional: Reports: No Symptoms HEENT: Reports: No Symptoms Respiratory: Reports: No Symptoms Cardiovascular: Reports: Other (difficulty breathing when laying flat) GI/Abdominal: Reports: No Symptoms Musculoskeletal: Reports: No Symptoms Skin: Reports: No Symptoms Neurological: Reports: No Symptoms ED EXAM, GENERAL - Physical Exam Exam: See Below Exam Limited By: No Limitations General Appearance: Alert, WD/WN, No Apparent Distress Eye Exam: Bilateral Eye: PERRL Ears: Normal External Exam Nose: Normal Inspection Throat/Mouth: Normal Inspection Head: Atraumatic, Normocephalic Neck: Normal Inspection, Full Range of Motion Respiratory/Chest: No Respiratory Distress, Lungs Clear, Normal Breath Sounds, No Accessory Muscle Use. No: Decreased Breath Sounds, Crackles, Rales Extremities: Normal Inspection, Normal Capillary Refill, Other (2+ pitting edema bilateral ankles) Neurological: Alert, Oriented Course - Vital Signs Last Recorded V/S: Last Vital Signs Temp 36.2 C 05/20/19 03:07 Pulse 98 05/20/19 03:07 Resp 20 05/20/19 03:07 BP 106/73 05/20/19 03:07 Pulse Ox 100 05/20/19 03:07 - Orders/Labs/Meds Orders: Active Orders 24 hr Category Date Time Status Furosemide [Lasix] Med 05/20/19 03:11 Once 40 mg PO DAILY ONE Departure - Departure Time of Disposition: 03:20 Disposition: Home, Self-Care 01 Condition: Good Clinical Impression: CHF exacerbation, CHF, Congestive heart failure CHF (congestive heart failure) Qualifiers: Heart failure type: unspecified Heart failure chronicity: chronic Qualified Code(s): I50.9 - Heart failure, unspecified - Discharge Information *PRESCRIPTION DRUG MONITORING PROGRAM REVIEWED*: No - My Orders Last 24 Hours: My Active Orders 05/20/19 03:11 Furosemide [Lasix] 40 mg PO DAILY ONE - Assessment/Plan Last 24 Hours: My Active Orders 12/02/19 03:11 Furosemide [Lasix] 40 mg PO DAILY ONE
== END 2019-05-20 03:17 | disposition home or self-care (01) ==
LOC: LB.ED 02:48
DX: I13.0 Hypertensive heart and chronic kidney disease with heart failure and stage 1 through stage 4 chronic kidney disease, or unspecified chronic kidney disease (principal); E11.22 Type 2 diabetes mellitus with diabetic chronic kidney disease; N18.9 Chronic kidney disease, unspecified; J44.9 Chronic obstructive pulmonary disease, unspecified; E78.00 Pure hypercholesterolemia, unspecified; F17.200 Nicotine dependence, unspecified, uncomplicated; Z88.6 Allergy status to analgesic agent; Z79.4 Long term (current) use of insulin; Z79.82 Long term (current) use of aspirin; Z79.51 Long term (current) use of inhaled steroids; Z79.899 Other long term (current) drug therapy
CPT/HCPCS: 99284; A9270-GY